=== PATIENT | male | born 1980 | race Two or more races ===

== ENCOUNTER 2018-10-09 11:21 | Inpatient (IN) | payer OTHER ==
[~2018-10-09] VITALS: Ht 165.1 cm; Wt 75.0 kg
[2018-10-09] MEDS ORDERED: SODIUM CHLORIDE 0.9% 1000ML 1,000 ML IV STA (11:33)
[2018-10-09] MEDS ORDERED: VANCOMYCIN 1GM/NS 250 ML 250 ML IV ONE (12:00)
[2018-10-09 12:09] LABS: BASOPHILS # (AUTO) 0.1 (0.0-0.1); BASOPHILS % 0.6 % (0.0-1.0); EOSINOPHILS # (AUTO) 0.1 (0.0-0.4); EOSINOPHILS % 0.5 % (0.0-6.0); HEMATOCRIT 41.8 % (38.2-49.6); HEMOGLOBIN 13.6 g/dL (14.0-18.0); LYMPHOCYTES # (AUTO) 3.1 (1.0-3.2); LYMPHOCYTES % 30.8 % (18.0-39.1); MEAN CORPUSCULAR HEMOGLOBIN 28.8 pg (28-32); MEAN CORPUSCULAR HGB CONC 32.5 g/dL (31-35); MEAN CORPUSCULAR VOLUME 88.4 fL (81-99); MONOCYTES # (AUTO) 1.9 (0.2-0.8); NEUTROPHILS # (AUTO) 4.9 (2.1-6.9); NEUTROPHILS % 48.6 % (38.7-80.0); PLATELET COUNT 598 x10e3/uL (140-360); RED BLOOD COUNT 4.73 x10e6/uL (4.3-5.7)
--- NOTE | 2018-10-09 12:21 | Diagnostic Imaging Report ---
EXAMINATION: PA and lateral views of the chest. COMPARISON: None CLINICAL HISTORY: Shortness of breath, decreased breath sounds on the right DISCUSSION: Near complete opacification of the right hemithorax with leftward mediastinal shift. Left lung is grossly clear. Cardiomediastinal contour is partially obscured No acute osseous abnormality. IMPRESSION: Near complete opacification of the right hemithorax, likely due to large pleural effusion. CT scan of the chest had been requested for further evaluation at the time of this dictation. Signed by: Dr. Byron Haddad M.D. on 10/09/2018 12:18 PM
[2018-10-09 12:23] LABS: INR 1.08; PROTHROMBIN TIME 14.5 seconds (11.9-14.5)
[2018-10-09 12:24] LABS: PARTIAL THROMBOPLASTIN TIME 47.7 seconds (23.8-35.5)
[2018-10-09 12:27] LABS: ALANINE AMINOTRANSFERASE 115 IU/L (0-55); ALBUMIN 2.9 g/dL (3.5-5.0); ALBUMIN/GLOBULIN RATIO 0.5 (0.8-2.0); ALKALINE PHOSPHATASE 111 IU/L (40-150); ANION GAP 15.1 mmol/L (8-16); BLOOD UREA NITROGEN 12 mg/dL (7-26); BUN/CREATININE RATIO 11 (6-25); CALCIUM 9.5 mg/dL (8.4-10.2); CARBON DIOXIDE 24 mmol/L (22-29); CHLORIDE 96 mmol/L (98-107); CREATINE KINASE 278 IU/L (30-200); CREATININE, SERUM 1.05 mg/dL (0.72-1.25); EST GLOMERULAR FILTRATION RATE > 60 ML/MIN (60-); GLUCOSE 100 mg/dL (74-118); MAGNESIUM 2.2 MG/DL (1.3-2.1); POTASSIUM 4.1 mmol/L (3.5-5.1); SODIUM 131 mmol/L (136-145)
[2018-10-09 12:34] LABS: INFLUENZAE A&B ANTIGEN (RAPID) NEGATIVE (NEGATIVE)
[2018-10-09 12:40] LABS: STREPTOCOCCUS GRP A ANTIGEN NEGATIVE (NEGATIVE)
[2018-10-09] MEDS ORDERED: ALBUTEROL SULF 0.083% NEB SOLN 3 ML NEB NEB SCH (12:45)
[2018-10-09] MEDS: LEVOFLOXACIN 750MG/D5W 150ML 150 ML IV SCH (12:45)
[2018-10-09] MEDS ORDERED: SODIUM CHLORIDE 0.9% 1000ML 1,000 ML IV ONE (12:45)
[2018-10-09] MEDS: IPRATROPIUM BROMIDE 0.02% 2.5 ML NEB NEB SCH ×2 (13:00→19:30)
--- NOTE | 2018-10-09 13:16 | NUR ---
contact from [facility], Angie
--- OUTSIDE RECORDS SUMMARY | 2018-10-09 13:29 | XMS REPORT ---
[facility] Address Unknown Phone Unavailable Care Team Providers Care Advertising Account Representative Name Role Phone Sangeetha THOMAS Unavailable Unavailable Problems This patient has no known problems. Allergies, Adverse Reactions, Alerts This patient has no known allergies or adverse reactions. Medications This patient has no known medications. Results Test Description Test Time Test Comments Text Results Atomic Results Result Comments CHEST 2 VIEWS 2018-10-09 12:15:00 [place] [id number] Patient Name: KELSY CASTILLO MR #: [id number] : 1980 Age/Sex: 37/M Req #: [id number] Adm Physician: Ordered by: ISABEL THOMAS MD Report #: [id number] Location: ER Room/Bed: Procedure: [id number] DX/CHEST 2 VIEWS Exam Date: Exam Time: REPORT STATUS: Signed EXAMINATION: PA and lateral views of the chest. COMPARISON: None CLINICAL HISTORY: Shortness of breath, decreased breath sounds on the right DISCUSSION: Near complete opacification of the right hemithorax with leftward mediastinal shift. Left lung is grossly clear. Cardiomediastinal contour is partially obscured No acute osseous abnormality. IMPRESSION: Near complete opacification of the right hemithorax, likely due to large pleural effusion. CT scan of the chest had been requested for further evaluation at the time of this dictation. Signed by: Dr. Eliezer Haddad M.D. on 10/09/2018 12:18 PM Dictated By: ELIEZER HADDAD MD 17 Transcribed By: FARTUN on 10/09/181217 COPY TO: ISABEL THOMAS MD
[2018-10-09 13:33] LABS: LYMPHOCYTES % (MANUAL) 26 % (19-48); METAMYELOCYTES % (MANUAL) 1 % (0-0); MONOCYTES % (MANUAL) 14 % (3.4-9.0); MYELOCYTES % (MANUAL) 1 % (0-0); NEUTROPHILS % (MANUAL) 57 % (40-74); PLATELET ESTIMATE SLIGHTLY INCREASED; PLATELET MORPHOLOGY COMMENT NORMAL; RBC MORPHOLOGY COMMENT NORMAL
[2018-10-09] MEDS ORDERED: SODIUM CHLORIDE 0.9% 50ML 50 ML ONE (14:09)
[2018-10-09] MEDS ORDERED: IOPAMIDOL 370 MG/ML 200 ML INFUS..BTL INJ ONE (14:09)
--- NOTE | 2018-10-09 14:33 | Diagnostic Imaging Report ---
EXAMINATION: CT of the chest with contrast, PE protocol. TECHNIQUE: Spiral CT images of the chest were performed from the lung apices through the level of the adrenal glands after the IV administration of 100 cc of Isovue-370 Thin section reconstructions were obtained with special concentration on the pulmonary arteries. COMPARISON: Chest radiograph same day CLINICAL HISTORY:Chest pain, shortness of breath DISCUSSION: Vasculature: The main pulmonary artery, right and left pulmonary arteries, and their visualized lobar and segmental branches are patent, without filling defect. There is no ectasia or aneurysmal dilatation of the thoracic aorta. Great vessel origins are normal in caliber and configuration. Lungs: Complete passive atelectasis of the right lung with the exception of the apical segment. Leftward mediastinal shift with scattered ground glass opacities in the left lung likely atelectatic changes as well. Airways: Trachea, mainstem bronchi, and central lobar and segmental bronchi are patent to the extent visualized. Many of the right segmental bronchi are compressed by atelectatic lung parenchyma. Pleura: Large right pleural effusion, average attenuation less than 20 Hounsfield units, occupies the entire right hemithorax. No pleural thickening, enhancement, or solid component. Heart and mediastinum: Leftward mediastinal shift. Normal heart size. Thyroid gland is normal. No axillary or hilar lymphadenopathy. No mediastinal lymphadenopathy. Abdomen: Visualized portions of the liver, spleen, and left kidney appear unremarkable. Bones and soft tissues: No osseous destructive lesions. Respiratory motion artifact limits evaluation of the ribs. Vertebral column is intact. IMPRESSION: No pulmonary embolus to the level of the segmental branch pulmonary arteries. Very large right pleural effusion with near complete passive atelectasis of the right lung and leftward mediastinal shift. No pleural thickening, enhancement, or solid pleural lesion. Signed by: Dr. Byron Haddad M.D. on 10/09/2018 2:29 PM
[2018-10-09] MEDS: ALBUTEROL SULF 0.083% NEB SOLN 3 ML NEB NEB SCH ×2 (14:42→19:30)
--- NOTE | 2018-10-09 15:18 | NUR ---
CALL PLACED OUT TO DR. GRAHAM REGARDING ISOLATION PRECAUTION AND ORDERS FOR SCREENING- AWAITING CALLBACK.
--- NOTE | 2018-10-09 15:33 | NUR ---
SPOKE WITH DEPORTATION OFFICER REGARDING ISOLATION - RECEIVED OKAY TO REMOVE PATIENT OFF AIRBORNE ISOLATION PRECAUTION.
--- NOTE | 2018-10-09 15:47 | Diagnostic Imaging Report ---
Examination: Single AP view of the chest. COMPARISON: Earlier 10/09/2018 INDICATION: Post thoracentesis DISCUSSION: See impression IMPRESSION: Interval large volume right thoracentesis with partial reexpansion of the right upper lobe and resolution of leftward mediastinal shift. Significant residual effusion persists. No pneumothorax. Left lung is clear. Signed by: Dr. Byron Haddad M.D. on 10/09/2018 3:44 PM
--- NOTE | 2018-10-09 16:02 | Diagnostic Imaging Report ---
Date and Time: 10/09/2018 Procedure: Ultrasound-guided right thoracentesis explosive operator supervisor: Dr. Haddad Pre-operative diagnosis: Right pleural effusion Post-operative diagnosis: Right pleural effusion Conscious Sedation: None The patient's heart rate and pulse oximetry were continuously monitored by the interventional radiology nurse. Blood pressure was monitored at 5 minute intervals. Additional Medications: Lidocaine 1% for local anesthesia Estimated blood loss: Minimal Blood products administered: None Specimens: 2600 cc cynthia-colored fluid Implants: None Complications: No immediate Condition at completion: Stable Disposition: Remain in hospital room DISCUSSION: Informed consent was obtained and documented in the medical record after discussion of risks and benefits. The patient was placed in the sitting position and the right back was prepped and draped in the standard sterile fashion. A suitable percutaneous approach to the large right pleural effusion was identified and 1% lidocaine was infiltrated into the skin and subcutaneous tissues for local anesthesia. Then under continuous sonographic guidance a 5 Ghanaian Yueh needle catheter was advanced into the pleural space with return of cynthia-colored fluid. The catheter was advanced off the needle and connected to vacuum bottle with subsequent evacuation of 2600 cc cynthia-colored fluid. Given patient's initial presentation and no prior thoracentesis, the procedure was terminated at this time. Post procedure sonographic evaluation showed partial evacuation of the pleural effusion. The catheter was removed and a sterile dressing was applied. The patient tolerated the procedure well without immediate complication. FINDINGS: Large right pleural effusion. IMPRESSION: Successful ultrasound-guided thoracentesis with evacuation of 2600 cc cynthia-colored fluid. Specimen was submitted for laboratory analysis as requested by the referring clinical service. Signed by: Dr. Byron Haddad M.D. on 10/09/2018 3:58 PM
[2018-10-09 16:09] VITALS: BP 133/68
--- NOTE | 2018-10-09 16:09 | NUR ---
PATIENT ARRIVED ON THE UNIT AT 1433 PER STRETCHER FROM THE ER. PATIENT IS IN STABLE CONDITION WITH NO S/S OF RESPIRATORY DISTRESS. PATIENT ARRIVED ON THE UNIT WITH N95 MASK. PER ER NURSE, ER PHYSICIAN STATED PATIENT DID NOT NEED TO BE ON ISOLATION PER CHEST XRAY RESULTS. THORACENTESIS PERFORMED ON PATIENT UPON ARRIVAL TO THE UNIT- RIGHT POSTERIOR DRESSING APPLIED- NO DRAINAGE NOTED. PATIENT STATES NO PAST HISTORY OF TB AND CAN NOT RECALL WHAT VACCINATIONS HE RECEIVED IN THE PAST. CALL LIGHT IS WITHIN REACH, PATIENT INSTRUCTED TO CALL FOR ASSISTANCE NEEDED.
--- NOTE | 2018-10-09 16:41 | Consultation ---
DATE OF CONSULTATION: 10/09/2018 Pulmonary Critical Care Consultation CHIEF COMPLAINT: Fever and pleural effusion. HISTORY OF PRESENT ILLNESS: The patient is a 37-year-old man. He reports no prior medical history. 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 Before this most recent outing, he was examined by the company's medical clinic and had a negative PPD. He now complains of worsening dyspnea and some fevers for the past week. He has a cough that is not productive of phlegm. He does note small amount of chest pain with inspiration. He denies any nausea or vomiting. PAST MEDICAL HISTORY: 1. No history of respiratory problems. 2. No prior history of tuberculosis or pneumonia. 3. The patient had a negative PPD prior to embarking on his most recent ship. PAST SURGICAL HISTORY: None. ALLERGIES: NO KNOWN DRUG ALLERGIES. FAMILY HISTORY: Family history is noncontributory. SOCIAL HISTORY: The patient is not an active smoker nor he is an active drinker. REVIEW OF SYSTEMS: He had some fevers. There is no headache. He does not complain of neck pain. He does note some shortness of breath. He is not having any chest pain. He has no nausea or vomiting. He is not having any leg swelling. He denies any skin rashes. PHYSICAL EXAMINATION: VITAL SIGNS: The patient is afebrile. The vital signs are stable. HEENT: Shows no facial swelling or erythema. The nasal mucosa is normal. The oropharynx is normal. LYMPHATIC: Shows no submandibular, cervical, or supraclavicular adenopathy. CARDIAC: Reveals a regular rate and rhythm with normal S1 and S2. LUNGS: Auscultation of lungs reveals decreased breath sounds on the right side. ABDOMEN: Soft and nontender. There is no rebound or guarding. EXTREMITIES: Show no leg edema or calf tenderness. SKIN: Shows no rashes. RADIOGRAPHIC DATA: Chest x-ray shows a large right pleural effusion. IMPRESSION: 1. Pneumonia with parapneumonic effusion. 2. Fevers. PLAN: 1. The patient will have an ultrasound-guided thoracentesis with analysis for a cell count, LDH, protein, glucose, and cytology. 2. The patient is on antibiotics. 3. Panculture and await results. 4. Monitor blood counts and electrolytes. 5. IV fluids. 6. Oxygen as needed. MD REBEKAH Vinson/PARTH /[id number]
[2018-10-09 16:56] LABS: BODY FLUID APPEARANCE CLOUDY; BODY FLUID COLOR STRAW; BODY FLUID TYPE PLEURAL
[2018-10-09 16:57] LABS: RBC,BODY FLUID 213 cells/uL; WBC,BODY FLUID 149 cells/uL
[2018-10-09] MEDS ORDERED: SODIUM CHLORIDE 0.9% 1000ML 1,000 ML IV SCH (17:45)
[2018-10-09 17:46] LABS: LYMPHOCYTES,BODY FLUID 96 %; MONO/MACROPHG,BODY FLUID 4 %
--- NOTE | 2018-10-09 17:50 | NUR ---
History and Physical cc: sob HPI: 37yoM, a paralegal internship, developed sob. Pt initially awoke at 4am after leaving [place] with headache, that lasted all day. the next day he had fever and dry cough, then sob. no hx TB/lung disease. Pt smokes; PMH: 1/4ppd cigs Pshx; none allergies; see emr FH/Sh; ; occ etoh; 1/4ppd cigs; paralegal internship meds; none roS; no cp/leg pain/vision changes/back pain/skin rash/diarrhea/N/V. V/S: rev'd PE tired appearing anicteric ns1s2 reduced BS; fine crackles at right lung base soft nt nd no e/t a&ox3; armstrong skin dry n. affect labs/med;s rev'd A/P: 37yoM Right pleural effusion R. PNA Obesity BMI 31.5 Hyponatremia Transaminitis Current smoker PLAN s/p thoracentesis 2600ml removed check hepatitis panel check BNP hba1c/lipids/TSH scd/pepcid dispo: Reginald Méndez MD, PhD.
[2018-10-09] MEDS ORDERED: ZOLPIDEM TARTRATE 5 MG TAB PO PRN (18:00)
[2018-10-09] MEDS ORDERED: SENNOSIDES 8.6 MG TAB PO PRN (18:00)
[2018-10-09] MEDS ORDERED: IPRATROPIUM BROMIDE 0.02% 2.5 ML NEB NEB SCH (18:00)
[2018-10-09] MEDS: ACETAMINOPHEN 325 MG TAB PO PRN (18:03)
[2018-10-09 18:12] LABS: CHOL/HDL RATIO 6.9 (3.9-4.7)
--- NOTE | 2018-10-09 18:32 | NUR ---
SPOKE WITH DR. GRAHAM REGARDING PATIENT'S CURRENT TEMPERATURE OF 101.5. RECEIVED ORDERS TO PLACE PATIENT BACK ON AIRBORNE ISOLATION, LAB ORDERS, AND VANCO TROUGH ORDERS.
--- NOTE | 2018-10-09 19:15 | NUR ---
patient received awake, alert, lying quietly in bed. no c/o pain noted. ns at 100 infusing x 1 liter. pm assessment complete. patient instructed to call for assistance when needed.
[2018-10-09 19:30] VITALS: BP 124/75
[2018-10-09 19:54] LABS: HIV 1&2 AB SCREEN NON-REACTIVE (NONREACTIVE)
[2018-10-09 21:07] VITALS: BP 124/75
[2018-10-09 23:19] VITALS: BP 148/85
[2018-10-10] VITALS (7 sets, daily range): BP systolic 121–152; BP diastolic 72–85
[2018-10-10] MEDS ORDERED: VANCOMYCIN 1GM/NS 250 ML 250 ML IV SCH
[2018-10-10] MEDS: IPRATROPIUM BROMIDE 0.02% 2.5 ML NEB NEB SCH ×5 (00:15→23:35)
[2018-10-10] MEDS: ALBUTEROL SULF 0.083% NEB SOLN 3 ML NEB NEB SCH ×7 (00:15→23:35)
[2018-10-10] MEDS: VANCOMYCIN 1GM/NS 250 ML 250 ML IV SCH ×2 (03:48→16:33)
[2018-10-10 06:20] LABS: BASOPHILS % 0.5 % (0.0-1.0); EOSINOPHILS % 0.2 % (0.0-6.0); HEMATOCRIT 35.6 % (38.2-49.6); HEMOGLOBIN 11.9 g/dL (14.0-18.0); LYMPHOCYTES # (AUTO) 2.6 (1.0-3.2); LYMPHOCYTES % 29.7 % (18.0-39.1); MEAN CORPUSCULAR HEMOGLOBIN 28.9 pg (28-32); MEAN CORPUSCULAR HGB CONC 33.4 g/dL (31-35); MEAN CORPUSCULAR VOLUME 86.4 fL (81-99); MONOCYTES # (AUTO) 1.5 (0.2-0.8); MONOCYTES % 17.2 % (4.4-11.3); NEUTROPHILS # (AUTO) 4.5 (2.1-6.9); NEUTROPHILS % 51.9 % (38.7-80.0); PLATELET COUNT 500 x10e3/uL (140-360); RED BLOOD COUNT 4.12 x10e6/uL (4.3-5.7); RED CELL DISTRIBUTION WIDTH 12.1 % (11.7-14.4)
[2018-10-10 06:42] LABS: ALANINE AMINOTRANSFERASE 89 IU/L (0-55); ALBUMIN 2.2 g/dL (3.5-5.0); ALBUMIN/GLOBULIN RATIO 0.5 (0.8-2.0); ALKALINE PHOSPHATASE 94 IU/L (40-150); BLOOD UREA NITROGEN 9 mg/dL (7-26); BUN/CREATININE RATIO 12 (6-25); CALCIUM 8.4 mg/dL (8.4-10.2); CARBON DIOXIDE 23 mmol/L (22-29); CHLORIDE 102 mmol/L (98-107); CREATININE, SERUM 0.77 mg/dL (0.72-1.25); EST GLOMERULAR FILTRATION RATE > 60 ML/MIN (60-); GLUCOSE 96 mg/dL (74-118); SODIUM 132 mmol/L (136-145)
--- NOTE | 2018-10-10 07:30 | NUR ---
PATIENT IS IN STABLE CONDITION WITH NO S/S OF RESPIRATORY DISTRESS. NO PAIN VOICED. TELEMETRY APPLIED WITH CONTINUOUS PULSE OX. O2 APPLIED. SCD'S APPLIED. CALL LIGHT IS WITHIN REACH, PATIENT INSTRUCTED TO CALL FOR ASSISTANCE NEEDED.
[2018-10-10] MEDS: FAMOTIDINE 20 MG TAB PO SCH ×2 (08:05→16:33)
[2018-10-10] MEDS: LEVOFLOXACIN 750MG/D5W 150ML 150 ML IV SCH (08:05)
[2018-10-10] MEDS ORDERED: SODIUM CHLORIDE 0.9% 250ML 250 ML ONE (08:10)
[2018-10-10 09:53] LABS: CLARITY,URINE HAZY (CLEAR); COLOR,URINE YELLOW (YELLOW)
[2018-10-10 09:54] LABS: KETONES,URINE 2+ (NEGATIVE); LEUKOCYTE ESTERASE ,URINE NEGATIVE (NEGATIVE); NITRITE,URINE NEGATIVE (NEGATIVE); PROTEIN,URINE DIPSTICK TRACE (NEGATIVE); URINE UROBILINOGEN 1 mg/dL (0.2 - 1)
[2018-10-10 09:55] LABS: BILIRUBIN,URINE NEGATIVE (NEGATIVE)
[2018-10-10 09:59] LABS: AMORPHOUS SEDIMENT,URINE FEW (FEW); BACTERIA,URINE MODERATE /HPF; EPITHELIAL CELLS,URINE MODERATE /LPF; HYALINE CASTS 0-1 (0-1); RBC,URINE 0-5 /HPF (0-5)
--- NOTE | 2018-10-10 10:29 | NUR ---
IM- progress note O/N; no events roS; no cp/leg pain/vision changes/back pain/skin rash/diarrhea/N/V. V/S: rev'd PE tired appearing anicteric ns1s2 reduced BS; fine crackles at right lung base soft nt nd no e/t a&ox3; armstrong skin dry n. affect labs/med;s rev'd A/P: 37yoM Right pleural effusion R. PNA Obesity BMI 31.5 Hyponatremia Transaminitis Current smoker PLAN s/p thoracentesis 2600ml removed check hepatitis panel check BNP hba1c/lipids/TSH scd/pepcid dispo: 10/10 doing better; get f/u cxr. HIV and flu neg; check MICHELLE and RF; hba1c neg. TSH normal; Reginald Méndez MD, PhD.
--- NOTE | 2018-10-10 10:42 | Diagnostic Imaging Report ---
EXAMINATION: CHEST 2 VIEWS INDICATION: Pneumonia pleural effusion COMPARISON: . FINDINGS: TUBES and LINES: None. LUNGS and PLEURA: Mild interval decrease in large right pleural effusion associated with underlying lung airspace disease which is obscured. The left lung is clear. No pneumothorax. HEART AND MEDIASTINUM: The cardiomediastinal silhouette is unremarkable. BONES AND SOFT TISSUES: No acute osseous lesion. UPPER ABDOMEN: No free air under the diaphragm. IMPRESSION: Mild interval decrease in right pleural effusion status post thoracentesis. Signed by: Dr. Yesica Sosa M.D. on 10/10/2018 10:39 AM
--- NOTE | 2018-10-10 12:34 | NUR ---
THIS PT IS FROM [place] [facility]. FROM [facility], WILL RETURN TO SHIP OR BACK HOME BUT COMPANY WILL MAKE ARRANGEMENTS, WILL HAVE GUARDS FROM COMPANY TO SIT BY BEDSIDE. WORKER WILL CONTACT TO KEEP UP WITH MEDICAL RECORD AND PLAN OF CARE
[2018-10-10] MEDS: ACETAMINOPHEN 325 MG TAB PO PRN (16:33)
--- NOTE | 2018-10-10 17:01 | Progress Note ---
DATE: 10/10/2018 Pulmonary Critical Care progress note SUBJECTIVE: The patient had 2.5 L removed with thoracentesis yesterday. The fluid was consistent with exudate, but did not suggest empyema. The differential showed predominantly lymphocytes. The triglyceride cultures and cytology from the fluid are still pending. PHYSICAL EXAMINATION: VITAL SIGNS: The patient is afebrile, but has a T-max of 99.6. The blood pressure is 146/73 and the respiratory rate is 20. Saturation is 95% on 3 L. HEENT: No facial swelling or erythema. The oropharynx is normal. LYMPHATIC: Shows no submandibular, cervical, or supraclavicular adenopathy. CARDIAC: Reveals a regular rate and rhythm with normal S1, S2. There are no murmurs or rubs. LUNGS: Auscultation of lungs reveals decreased breath sounds on the right side. ABDOMEN: Soft, nontender. There is no rebound or guarding. EXTREMITIES: No leg edema or calf tenderness. There is no cyanosis or clubbing. SKIN: Shows no rashes. NEUROLOGICAL: Shows no focal abnormalities. LABORATORY DATA: White blood cell count is 8.6 and hemoglobin is 11.9. The platelet count is 500. The BUN to creatinine ratio is 9 to 0.77. The other electrolytes are within normal limits. The chest x-ray still shows some right pleural effusion. IMPRESSION: 1. Community-acquired pneumonia with parapneumonic effusion. 2. Large volume right-sided pleural effusion. PLAN: 1. Continue current antibiotics. 2. Await additional results from pleural fluid. 3. Repeat thoracentesis tomorrow. 4. Continue to wean oxygen as tolerated. 5. Case discussed with the patient, nursing and Dr. Méndez. Espinoza Harry MD [facility] /[id number]
--- NOTE | 2018-10-10 18:47 | NUR ---
PATIENT IS IN STABLE CONDITION WITH NO S/S OF RESPIRATORY DISTRESS. NO PAIN VOICED. TELEMETRY AND CONTINUOUS PULSE OX APPLIED. CALL LIGHT IS WITHIN REACH, PATIENT INSTRUCTED TO CALL FOR ASSISTANCE NEEDED. BEDSIDE REPORT GIVEN TO ONCOMING NURSE.
--- NOTE | 2018-10-10 19:00 | NUR ---
patient received awake, alert, lying quietly in bed. no c/o pain noted. 3l/nc in use. respirations even and unlabored. pm assessment complete. patient instructed to call for assistance when needed.
[2018-10-11] VITALS (7 sets, daily range): BP systolic 119–148; BP diastolic 70–98
[2018-10-11] MEDS: ACETAMINOPHEN 325 MG TAB PO PRN (00:27)
--- NOTE | 2018-10-11 00:27 | NUR ---
patient medicated with tylenol 650 mg po for temp 101.8 at this time.
[2018-10-11] MEDS: ALBUTEROL SULF 0.083% NEB SOLN 3 ML NEB NEB SCH ×6 (00:50→20:35)
[2018-10-11] MEDS: VANCOMYCIN 1GM/NS 250 ML 250 ML IV SCH ×2 (03:33→15:44)
[2018-10-11] MEDS: IPRATROPIUM BROMIDE 0.02% 2.5 ML NEB NEB SCH ×3 (08:15→20:35)
[2018-10-11] MEDS: FAMOTIDINE 20 MG TAB PO SCH ×2 (08:28→15:44)
[2018-10-11] MEDS: LEVOFLOXACIN 750MG/D5W 150ML 150 ML IV SCH (08:28)
--- NOTE | 2018-10-11 11:52 | Diagnostic Imaging Report ---
A single frontal view of the chest. HISTORY: Pleural Effusion and Pneumonia COMPARISON: Chest radiograph October 10, 2018 DISCUSSION: Portable technique, limits sensitivity of the exam. Overlying monitoring leads. Tubes/Lines: None Lungs and pleura: The large right pleural effusion with adjacent prominent right lung atelectasis, appears slightly increased versus the comparison. The left lung remains clear. Heart and mediastinum: The right side of the heart is obscured. Bones and soft tissues: Appears unchanged. IMPRESSION: Large right pleural effusion with adjacent atelectasis, slightly increased. Signed by: Dr. Artis Munoz D.O., M.M.M. on 10/11/2018 11:48 AM
--- NOTE | 2018-10-11 16:15 | Operative Report ---
DATE OF PROCEDURE: October 12, 2018 SURGEON: Espinoza Harry MD PREOPERATIVE DIAGNOSIS: Pneumonia with parapneumonic effusion. POSTOPERATIVE DIAGNOSIS: Pneumonia with parapneumonic effusion. CONSENT: Consent was obtained from the patient. ANESTHESIA: 1% lidocaine was used for local anesthesia. PROCEDURE: Thoracentesis with ultrasound guidance. Ultrasound was used to locate the pleural fluid in the right pleural space. The right posterior thorax was prepped sterilely. One percent lidocaine was used to anesthetize the area above the posterior, ninth rib, the subcutaneous tissue and the parietal pleura. A 16-gauge catheter was placed in the right pleural space and the catheter was advanced into the pleural space. 200 mL of thick yellow fluid was removed. COMPLICATIONS: None. ESTIMATED BLOOD LOSS: None. Espinoza Harry MD [facility] /[id number]
--- NOTE | 2018-10-11 16:22 | NUR ---
IM- progress note O/N; no events roS; no cp/leg pain/vision changes/back pain/skin rash/diarrhea/N/V. V/S: rev'd PE tired appearing anicteric ns1s2 reduced BS; fine crackles at right lung base soft nt nd no e/t a&ox3; armstrong skin dry n. affect labs/med;s rev'd A/P: 37yoM Right pleural effusion R. PNA Obesity BMI 31.5 Hyponatremia Transaminitis Current smoker PLAN s/p thoracentesis 2600ml removed check hepatitis panel check BNP hba1c/lipids/TSH scd/pepcid dispo: 10/10 doing better; get f/u cxr. HIV and flu neg; check MICHELLE and RF; hba1c neg. TSH normal; 10/11 d/w - appears to be loculated right pleural effusion- reaccumulated. Agree with CV surgery consult. 200cc fluid removed by 2nd thoracentesis; Pt comfortable; no resp distress. Reginald Méndez MD, PhD.
[2018-10-11 17:32] LABS: BODY FLUID TYPE PLEURAL
[2018-10-11 17:36] LABS: BODY FLUID COLOR YELLOW
[2018-10-11 17:37] LABS: BODY FLUID APPEARANCE SL.CLOUDY
[2018-10-11 17:39] LABS: RBC,BODY FLUID 1631 cells/uL; WBC,BODY FLUID 67 cells/uL
[2018-10-11 18:23] LABS: LYMPHOCYTES,BODY FLUID 87 %; MONO/MACROPHG,BODY FLUID 3 %; NEUTROPHILS,BODY FLUID 10 %
[2018-10-12] VITALS (8 sets, daily range): BP systolic 106–135; BP diastolic 55–75
[2018-10-12] MEDS: IPRATROPIUM BROMIDE 0.02% 2.5 ML NEB NEB SCH ×4 (00:50→20:00)
[2018-10-12 04:06] LABS: BASOPHILS # (AUTO) 0.1 (0.0-0.1); BASOPHILS % 0.7 % (0.0-1.0); EOSINOPHILS # (AUTO) 0.1 (0.0-0.4); EOSINOPHILS % 1.5 % (0.0-6.0); HEMATOCRIT 35.7 % (38.2-49.6); HEMOGLOBIN 11.8 g/dL (14.0-18.0); LYMPHOCYTES # (AUTO) 2.3 (1.0-3.2); LYMPHOCYTES % 26.3 % (18.0-39.1); MEAN CORPUSCULAR HEMOGLOBIN 29.2 pg (28-32); MEAN CORPUSCULAR HGB CONC 33.1 g/dL (31-35); MEAN CORPUSCULAR VOLUME 88.4 fL (81-99); MONOCYTES # (AUTO) 1.5 (0.2-0.8); MONOCYTES % 17.3 % (4.4-11.3); NEUTROPHILS # (AUTO) 4.7 (2.1-6.9); NEUTROPHILS % 53.7 % (38.7-80.0); PLATELET COUNT 564 x10e3/uL (140-360); RED BLOOD COUNT 4.04 x10e6/uL (4.3-5.7); RED CELL DISTRIBUTION WIDTH 12.3 % (11.7-14.4)
[2018-10-12] MEDS: ALBUTEROL SULF 0.083% NEB SOLN 3 ML NEB NEB SCH ×4 (04:45→20:00)
--- NOTE | 2018-10-12 04:55 | NUR ---
VANCO TROUGH DRAWN AT 0300. BROUGHT TO LAB AT 0305. TIME NOW IS 0455, VANCO THROUGH RESULT IS STILL PENDING. CALLED LAB 6X BUT PHOTOVOLTAIC SUBCONTRACTOR KEEP SAYING " WE'RE BEHIND"
--- NOTE | 2018-10-12 05:32 | NUR ---
VANCO TROUGH RESULTED AT THIS TIME.
[2018-10-12] MEDS: VANCOMYCIN 1GM/NS 250 ML 250 ML IV SCH ×2 (05:34→16:31)
--- NOTE | 2018-10-12 07:40 | NUR ---
IM- progress note O/N; no events roS; no cp/leg pain/vision changes/back pain/skin rash/diarrhea/N/V. V/S: rev'd PE tired appearing anicteric ns1s2 reduced BS; fine crackles at right lung base soft nt nd no e/t a&ox3; armstrong skin dry n. affect labs/med;s rev'd A/P: 37yoM Right pleural effusion R. PNA Obesity BMI 31.5 Hyponatremia Transaminitis Current smoker PLAN s/p thoracentesis 2600ml removed check hepatitis panel check BNP hba1c/lipids/TSH scd/pepcid dispo: 10/10 doing better; get f/u cxr. HIV and flu neg; check MICHELLE and RF; hba1c neg. TSH normal; 10/11 d/w - appears to be loculated right pleural effusion- reaccumulated. Agree with CV surgery consult. 200cc fluid removed by 2nd thoracentesis; Pt comfortable; no resp distress. 10/12 f/u labs; chest tube this am. Reginald Méndez MD, PhD.
[2018-10-12 08:00] LABS: ALANINE AMINOTRANSFERASE 184 IU/L (0-55); ALBUMIN 2.3 g/dL (3.5-5.0); ALBUMIN/GLOBULIN RATIO 0.5 (0.8-2.0); ANION GAP 12.5 mmol/L (8-16); BLOOD UREA NITROGEN 8 mg/dL (7-26); BUN/CREATININE RATIO 10 (6-25); CARBON DIOXIDE 23 mmol/L (22-29); CHLORIDE 104 mmol/L (98-107); CREATININE, SERUM 0.81 mg/dL (0.72-1.25); EST GLOMERULAR FILTRATION RATE > 60 ML/MIN (60-); GLUCOSE 107 mg/dL (74-118); POTASSIUM 4.5 mmol/L (3.5-5.1); SODIUM 135 mmol/L (136-145)
[2018-10-12 08:16] LABS: ALKALINE PHOSPHATASE 102 IU/L (40-150)
[2018-10-12] MEDS: LEVOFLOXACIN 750MG/D5W 150ML 150 ML IV SCH (09:15)
--- NOTE | 2018-10-12 09:25 | NUR ---
Pt left to IR for Chest tube placement
[2018-10-12] MEDS ORDERED: FENTANYL CITRATE/PF 100MCG/2 ML INJ ONE (09:35)
[2018-10-12] MEDS ORDERED: MIDAZOLAM HCL 2 MG/2 ML VIAL ONE (09:35)
--- NOTE | 2018-10-12 09:45 | NUR ---
Pt received resting in bed. Alert and oriented x4. Oriented to staff and surroundings. Encouraged to press call heredia if help needed. Pt is on R/O TB precautions. Emotional support given. Call heredia within reach. Will monitor
--- NOTE | 2018-10-12 10:10 | Progress Note ---
DATE: 10/12/2018 Pulmonary Critical Care Progress Note SUBJECTIVE: The patient states he feels better this morning. He has less dyspnea, although chest x-ray still shows some right-sided effusion and/or atelectasis. PHYSICAL EXAMINATION: VITAL SIGNS: The blood pressure is 106/55 and the saturation is 99% on 3 L. The pulse is 93 and respiratory rate is 18. HEENT: Shows no facial swelling or erythema. The oropharynx is normal. LYMPHATIC: Shows no submandibular, cervical, or supraclavicular adenopathy. CARDIAC: Reveals a regular rate and rhythm with normal S1, S2. There are no murmurs or rubs. LUNGS: Auscultation of lungs reveals decreased breath sounds on the right side. EXTREMITIES: There is no leg edema or calf tenderness. SKIN: Shows no rashes. IMPRESSION: 1. Community-acquired pneumonia with sepsis on admission. 2. Complicated right-sided parapneumonic effusion. PLAN: 1. The patient is scheduled for a pigtail chest tube placement by Radiology today. 2. Continue current antibiotics. 3. Await final culture results. 4. CT Surgery consultation. Espinoza Harry MD [facility] /[id number]
[2018-10-12] MEDS ORDERED: LIDOCAINE HCL 1% LOCAL INJ 20 ML VIAL ONE (10:25)
--- NOTE | 2018-10-12 11:00 | NUR ---
Pt returned from IR with Right sided Chest tube. 500ml yellow fluid noted in chest tube. Emotional support given. Call heredia within reach. Will monitor
--- NOTE | 2018-10-12 12:05 | Diagnostic Imaging Report ---
CT Guided Right Chest Tube Placement COMPARISON: Chest radiograph 10/11/2018. CONSENT: The nature of the procedure, including its risks, benefits and alternatives was explained to the patient who understood and gave consent. TRAVELING REPAIR ACCOUNTANT: Kellie Clifton MD ANESTHESIA: Intravenous conscious sedation was administered by radiology nursing. Continuous hemodynamic and respiratory monitoring was performed, including the use of pulse oximetry. TOTAL SEDATION TIME: 55 minutes. MEDICATIONS: 10 cc of 1% subcutaneous lidocaine 75 mcg IV Fentanyl and 1.5 mg IV Versed per nursing administration records SPECIMENS: 30 cc of serous clear yellow fluid, total of 350 cc of fluid removed IMPLANTS: 10 Fr pigtail right basilar chest tube BLOOD LOSS: None TECHNIQUE/FINDINGS: The patient was placed in the supine position. Scans were obtained through the right lung which demonstrated a large layering right sided pleural effusion with associated atelectasis. A clear path to the basilar aspect of the right effusion via right anterolateral approach was identified. The skin of the right anterior and lateral chest was marked, prepped, draped and anesthetized with 1% lidocaine. With CT guidance, an 18 gauge needle was inserted percutaneously into the right pleural space. Subsequently, an .35'' Amplatz wire was placed. Then with CT guidance, a 10 English pigtail catheter was placed into the right basilar pleural space. The catheter was connected to wall suction and the the pleural effusion was partially aspirated. Repeat CT demonstrated decreased moderate to large right pleural effusion with improved aeration within the right lung. The catheter was secured with two sutures and a sterile dressing was placed. No evidence of immediate complication. The patient was transported to the floor in stable condition. IMPRESSION: CT guided right sided chest tube placement for large right pleural effusion. Post procedural CT demonstrating improvement of moderate to large right pleural effusion. Signed by: Dr. Kellie Clifton MD on 10/12/2018 12:02 PM
[2018-10-12] MEDS: FAMOTIDINE 20 MG TAB PO SCH ×2 (12:09→16:31)
[2018-10-12] MEDS: ACETAMINOPHEN 325 MG TAB PO PRN (12:09)
[2018-10-12 14:36] LABS: EOSINOPHILS % (MANUAL) 2 % (0-7); LYMPHOCYTES % (MANUAL) 33 % (19-48); MONOCYTES % (MANUAL) 16 % (3.4-9.0); NEUTROPHILS % (MANUAL) 49 % (40-74); PLATELET ESTIMATE SLIGHTLY INCREASED; PLATELET MORPHOLOGY COMMENT NORMAL
[2018-10-12 14:37] LABS: ANISOCYTOSIS SLIGHT; HYPOCHROMASIA SLIGHT; RBC MORPHOLOGY COMMENT NORMAL
--- NOTE | 2018-10-12 19:10 | NUR ---
patient received awake, alert, lying quietly in bed. no c/o pain noted. chest tube (right) to 20 cm suction. pm assessment complete. patient instructed to call for assistance when needed.
--- NOTE | 2018-10-12 19:23 | NUR ---
100 ML fluid noted since 11AM. Emotional sup[port given. Call heredia within reach. Will monitor
[2018-10-13] VITALS (8 sets, daily range): BP systolic 107–129; BP diastolic 59–90
[2018-10-13] MEDS: IPRATROPIUM BROMIDE 0.02% 2.5 ML NEB NEB SCH ×5 (00:30→23:45)
[2018-10-13] MEDS: ALBUTEROL SULF 0.083% NEB SOLN 3 ML NEB NEB SCH ×7 (00:30→23:45)
[2018-10-13] MEDS: VANCOMYCIN 1GM/NS 250 ML 250 ML IV SCH ×2 (03:12→17:30)
--- NOTE | 2018-10-13 05:15 | NUR ---
patient appears to be resting quietly. no c/o pain verbalized. chest tube output remains unchanged throughout the night.
[2018-10-13 06:27] LABS: BASOPHILS # (AUTO) 0.1 (0.0-0.1); BASOPHILS % 0.7 % (0.0-1.0); EOSINOPHILS # (AUTO) 0.2 (0.0-0.4); EOSINOPHILS % 2.9 % (0.0-6.0); HEMATOCRIT 36.8 % (38.2-49.6); HEMOGLOBIN 12.1 g/dL (14.0-18.0); LYMPHOCYTES # (AUTO) 2.4 (1.0-3.2); LYMPHOCYTES % 28.5 % (18.0-39.1); MEAN CORPUSCULAR HEMOGLOBIN 28.7 pg (28-32); MEAN CORPUSCULAR HGB CONC 32.9 g/dL (31-35); MEAN CORPUSCULAR VOLUME 87.4 fL (81-99); MONOCYTES # (AUTO) 1.2 (0.2-0.8); MONOCYTES % 14.3 % (4.4-11.3); NEUTROPHILS # (AUTO) 4.4 (2.1-6.9); NEUTROPHILS % 53.1 % (38.7-80.0); PLATELET COUNT 578 x10e3/uL (140-360); RED BLOOD COUNT 4.21 x10e6/uL (4.3-5.7); RED CELL DISTRIBUTION WIDTH 12.3 % (11.7-14.4)
[2018-10-13 07:08] LABS: ALANINE AMINOTRANSFERASE 292 IU/L (0-55); ALBUMIN 2.3 g/dL (3.5-5.0); ALBUMIN/GLOBULIN RATIO 0.4 (0.8-2.0); ALKALINE PHOSPHATASE 140 IU/L (40-150); ANION GAP 11.4 mmol/L (8-16); BLOOD UREA NITROGEN 10 mg/dL (7-26); BUN/CREATININE RATIO 12 (6-25); CALCIUM 9.2 mg/dL (8.4-10.2); CARBON DIOXIDE 23 mmol/L (22-29); CHLORIDE 102 mmol/L (98-107); CREATININE, SERUM 0.83 mg/dL (0.72-1.25); EST GLOMERULAR FILTRATION RATE > 60 ML/MIN (60-); GLUCOSE 102 mg/dL (74-118); POTASSIUM 4.4 mmol/L (3.5-5.1); SODIUM 132 mmol/L (136-145)
--- NOTE | 2018-10-13 07:09 | NUR ---
Total of 740ML received in chest tube this am. Will monitor
--- NOTE | 2018-10-13 09:20 | NUR ---
Pt received resting in bed. Chest tube fluid is yellow in color at 740ML celine. All meds given as ordered. Airborne isolation to r/o TB. Emotional support given. Will monitor
[2018-10-13] MEDS: FAMOTIDINE 20 MG TAB PO SCH ×2 (09:31→16:30)
[2018-10-13] MEDS: LEVOFLOXACIN 750MG/D5W 150ML 150 ML IV SCH (09:31)
--- NOTE | 2018-10-13 14:16 | Diagnostic Imaging Report ---
AP and lateral chest radiographs HISTORY: Right pleural effusion. COMPARISON: Chest radiograph 10/11/[address] guided chest tube placement 10/12/2018. DISCUSSION: Tubes/Lines: None Lungs and pleura: Status post interval placement of a right basilar pigtail chest tube. Interval decrease in size of right-sided pleural effusion, now moderate. There is increased aeration within the right lung. No evidence of pneumothorax. The left lung remains clear. Heart and mediastinum: Unchanged cardiomediastinal silhouette. Bones and soft tissues: No acute osseous abnormality. IMPRESSION: Interval placement of a right basilar chest tube with decreased right pleural effusion, now moderate. Improved aeration within the right lung. Signed by: Dr. Kellie Clifton MD on 10/13/2018 2:12 PM
--- NOTE | 2018-10-13 15:07 | NUR ---
IM- progress note O/N; no events roS; no cp/leg pain/vision changes/back pain/skin rash/diarrhea/N/V. V/S: rev'd PE tired appearing anicteric ns1s2 reduced BS; fine crackles at right lung base soft nt nd no e/t a&ox3; armstrong skin dry n. affect labs/med;s rev'd A/P: 37yoM Right pleural effusion R. PNA Obesity BMI 31.5 Hyponatremia Transaminitis Current smoker PLAN s/p thoracentesis 2600ml removed check hepatitis panel check BNP hba1c/lipids/TSH scd/pepcid dispo: 10/10 doing better; get f/u cxr. HIV and flu neg; check MICHELLE and RF; hba1c neg. TSH normal; 10/11 d/w - appears to be loculated right pleural effusion- reaccumulated. Agree with CV surgery consult. 200cc fluid removed by 2nd thoracentesis; Pt comfortable; no resp distress. 10/12 f/u labs; chest tube this am. 10/13 s/p chest tube; f/u sx plan. RF negative; MICHELLE neg; check acute hepatitis panel. Reginald Méndez MD, PhD.
--- NOTE | 2018-10-13 18:04 | Diagnostic Imaging Report ---
EXAMINATION: CT scan of the chest without contrast. TECHNIQUE: Helical CT images of the chest were performed from the lung apices to the level of the adrenal glands. No intravenous contrast was administered Coronal and sagittal reformatted images were obtained.Dose modulation, iterative reconstruction, and/or weight based adjustment of the mA/kV was utilized to reduce the radiation dose to as low as reasonably achievable. COMPARISON: None. CLINICAL HISTORY:Effusion and pneumonia DISCUSSION: ABSENCE OF INTRAVENOUS CONTRAST DECREASES SENSITIVITY FOR DETECTION OF FOCAL LESIONS AND VASCULAR PATHOLOGY. LINES/TUBES: Left pigtail catheter within the inferior portion of the effusion. LUNGS AND AIRWAYS: Atelectasis involving the right upper lobe medially and adjacent to the moderate size right effusion. Mild left lower lung atelectasis. Mild ground glass change in the left upper lobe peripherally. PLEURA: Moderate right pleural effusion. HEART AND MEDIASTINUM: The thyroid gland is normal. The heart and pericardium are within normal limits. LYMPH NODES: There is no mediastinal, hilar or axillary lymphadenopathy. ABDOMEN: Limited contrast-enhanced views of the upper abdomen show no abnormality within the visualized liver, spleen, pancreas, or kidneys. The adrenal glands are normal. BONES AND SOFT TISSUES: No acute bony abnormalities. IMPRESSION: Moderate right pleural effusion with adjacent atelectasis. Pigtail catheter in place in the inferior portion of the effusion. Signed by: Dr. Enzo Tucker M.D. on 10/13/2018 6:00 PM
--- NOTE | 2018-10-13 18:04 | Progress Note ---
DATE: 10/13/2018 Pulmonary Critical Care Progress Note SUBJECTIVE: The patient had the chest tube placed yesterday. He has had about a 1000 mL of drainage over the past 24 hours. He reports feeling better. He still has a fever to 99.6. OBJECTIVE: VITAL SIGNS: The patient is afebrile. The blood pressure is 122/70 and the pulse is 95. Temperature is 99.4. HEENT: Shows no facial swelling or erythema. The oropharynx is normal. LYMPHATIC: Shows no submandibular, cervical, or supraclavicular adenopathy. CARDIAC: Reveals a regular rate and rhythm with normal S1 and S2. There are no murmurs or rubs. LUNGS: Auscultation of lungs reveals rhonchorous breath sounds bilaterally. There is no wheezing. ABDOMEN: Soft, nontender. There is no rebound or guarding. EXTREMITIES: Show no leg edema or calf tenderness. IMPRESSION: 1. Community-acquired pneumonia. 2. Parapneumonic effusion. PLAN: 1. Repeat CT scan of the chest. 2. Continue current antibiotics. 3. Await final culture results. 4. Continue chest tube drainage. Espinoza Harry MD [facility]/PARTH /[id number]
--- NOTE | 2018-10-13 19:00 | NUR ---
patient received awake, alert, lying quietly in bed talking on cell phone. respirations even and unlabored. no c/o pain noted. right chest tube dressing site c,d,i. pm assessment complete. patients call heredia placed within reach. patient instructed to call for assistance when needed.
--- NOTE | 2018-10-13 19:33 | NUR ---
Total of 340ML noted in chest tube during this shift (1080ML in chest tube). Emotional support given. Call heredia within reach. Endorsed to next shift
--- NOTE | 2018-10-13 19:52 | NUR ---
As per I.D nurse, pt should be taken off isolation due to negative stest. T-Spot (a send-out) sent yesterday morning (10/12/18) will take 32-36 hours to result. Called Dr. Méndez notified, and Dr. Valerio consulted. Spoke to Dr. Harry also. Neither doctors gave order to discontinue Airborne isolation. Charge nurse & boiler shop supervisor aware. Endorsed to oncoming shift
[2018-10-14] VITALS (8 sets, daily range): BP systolic 107–128; BP diastolic 61–79
--- NOTE | 2018-10-14 | NUR ---
patient appears to be resting quietly. no c/o pain noted at this time.
[2018-10-14] MEDS: ALBUTEROL SULF 0.083% NEB SOLN 3 ML NEB NEB SCH ×6 (00:22→20:00)
[2018-10-14] MEDS: VANCOMYCIN 1GM/NS 250 ML 250 ML IV SCH (03:21)
[2018-10-14] MEDS ORDERED: SODIUM CHLORIDE 0.9% 250ML 250 ML ONE (04:29)
[2018-10-14] MEDS: IPRATROPIUM BROMIDE 0.02% 2.5 ML NEB NEB SCH ×3 (07:00→20:00)
--- NOTE | 2018-10-14 07:36 | NUR ---
PATIENT IN BED RESTING WITH NO RESPIRATORY DISTRESS. RIGHT CHEST TUBE WITH DRESSING DRY AND INTACT, DRAINING YELLOW FLUID. BED IN LOWER POSITION, CALL LIGHT AT REACH.
[2018-10-14] MEDS: FAMOTIDINE 20 MG TAB PO SCH ×2 (07:50→16:47)
--- NOTE | 2018-10-14 08:03 | NUR ---
IM- progress note O/N; no events roS; no cp/leg pain/vision changes/back pain/skin rash/diarrhea/N/V. V/S: rev'd PE tired appearing anicteric ns1s2 reduced BS; fine crackles at right lung base soft nt nd no e/t a&ox3; armstrong skin dry n. affect labs/med;s rev'd A/P: 37yoM Right pleural effusion R. PNA Obesity BMI 31.5 Hyponatremia Transaminitis Current smoker PLAN s/p thoracentesis 2600ml removed check hepatitis panel check BNP hba1c/lipids/TSH scd/pepcid dispo: 10/10 doing better; get f/u cxr. HIV and flu neg; check MICHELLE and RF; hba1c neg. TSH normal; 10/11 d/w - appears to be loculated right pleural effusion- reaccumulated. Agree with CV surgery consult. 200cc fluid removed by 2nd thoracentesis; Pt comfortable; no resp distress. 10/12 f/u labs; chest tube this am. 10/13 s/p chest tube; f/u sx plan. RF negative; MICHELLE neg; check acute hepatitis panel. 10/14 subtherapeutic vanco; ID consult. Pt was seen by CV surgery. awaiting plan of care. Reginald Méndez MD, PhD.
[2018-10-14] MEDS: LEVOFLOXACIN 750MG/D5W 150ML 150 ML IV SCH (09:27)
--- NOTE | 2018-10-14 13:05 | NUR ---
PATIENT ASSISTED TO BED SIDE COMMODE AND BACK TO BED. HAD A LARGE BM. CHEST TUBE IN PLACE. CALL LIGHT AT REACH.
--- NOTE | 2018-10-14 16:09 | NUR ---
PATIENT OFF UNIT TO RADIOLOGY.
--- NOTE | 2018-10-14 16:37 | NUR ---
PATIENT BACK TO UNIT FROM RADIOLOGY.
--- NOTE | 2018-10-14 17:09 | Diagnostic Imaging Report ---
EXAMINATION: CT of the chest, abdomen and pelvis with contrast. TECHNIQUE: Spiral CT images of the chest, abdomen and pelvis were performed from the lung apices to the lesser trochanters after the intravenous administration of 100 cc of Isovue-370. Coronal and sagittal reformatted images were obtained. COMPARISON: CT chest without contrast 10/13/2018 CLINICAL HISTORY:Suspected malignancy DISCUSSION: CHEST: LINES/TUBES: Stable position of right-sided locking loop pleural drainage catheter. LUNGS AND AIRWAYS: Stable scar or atelectatic changes in the medial aspect of the right lung apex as well as complete passive atelectasis of the right lower lobe. Groundglass opacities in the left upper lobe unchanged, along with linear atelectasis in the left lung base. PLEURA: Moderate residual right pleural effusion with probable reactive thin pleural enhancement. Effusion is similar in size to that noted 10/13/2018. HEART AND MEDIASTINUM: Visualized portions of the thyroid gland are normal. No ectasia or aneurysmal dilatation of the thoracic aorta. Pulmonary outflow tract is of normal caliber. No pericardial effusion. Right lower paratracheal node measures 1 cm short axis. Otherwise no axillary, hilar, or mediastinal lymphadenopathy. LYMPH NODES: As above. BONES AND SOFT TISSUES: No osseous destructive lesions. No focal soft tissue abnormalities. ABDOMEN/PELVIS: HEPATOBILIARY:No focal hepatic lesions. No biliary ductal dilation. The gallbladder is normal. SPLEEN: No splenomegaly. PANCREAS: No focal masses or ductal dilatation. ADRENALS: No adrenal nodules. KIDNEYS/URETERS: Punctate nonobstructing calculus in the right kidney seen on series 304 image 57. No additional calculi. No mass lesion. No hydronephrosis. PELVIC ORGANS/BLADDER: Urinary bladder is incompletely distended but otherwise unremarkable. Prostate and seminal vesicles appear normal. PERITONEUM/RETROPERITONEUM: No free air or fluid. LYMPH NODES: No pelvic sidewall, retroperitoneal, or mesenteric lymphadenopathy. VESSELS: Abdominal aorta, major branch vessels, and iliac arterial systems are patent without aneurysmal dilatation. Portal vein, splenic vein, and central superior mesenteric vein are patent. GI TRACT: The large bowel shows no distention or wall thickening. Gas and fecal material are noted throughout. Normal appendix. The stomach is collapsed with prominent rugal folds. No small bowel dilatation to suggest obstruction; however, there are several foci of relatively abrupt transition from collapsed to distended small bowel for example on series 305 image 27 and series 304 image 103. BONES AND SOFT TISSUES: No osseous destructive lesions. No focal soft tissue abnormalities. IMPRESSION: Stable appearance of moderate right pleural effusion relative to 10/13/2018, with a pleural drainage catheter in the posterior-inferior aspect of the effusion and presumed reactive pleural enhancement. No underlying pulmonary mass lesion is appreciated, though evaluation is limited by persistent complete passive atelectasis of the right lobe. Nonspecific groundglass opacities in the left lung are likely infectious or inflammatory in nature. No acute intra-abdominal or pelvic CT abnormalities. Multiple abrupt transition points from collapsed to distended small bowel without evidence of small bowel obstruction. This appearance may be seen in mycobacterial infection of the bowel, especially in light of associated thoracic findings. Fluoroscopic small bowel series or MR enterography of the abdomen and pelvis may be of benefit for further evaluation. Punctate nonobstructing right renal calculus. Signed by: Dr. Byron Haddad M.D. on 10/14/2018 5:06 PM
[2018-10-14] MEDS ORDERED: SODIUM CHLORIDE 0.9% 50ML 50 ML ONE (17:33)
[2018-10-14] MEDS ORDERED: IOPAMIDOL 370 MG/ML 200 ML INFUS..BTL INJ ONE (17:33)
--- NOTE | 2018-10-14 17:41 | Consultation ---
DATE OF CONSULTATION: 10/14/2018 REASON FOR CONSULTATION: Evaluate and assist in treatment of patient with pneumonia and pleural effusion. Information is gathered from current medical record. I interviewed the patient at bedside. HISTORY OF PRESENT ILLNESS: He is a 37-year-old male, who is a citizen of [facility]. He works on a ship. He reports that he has never been hospitalized, he has never been diagnosed with tuberculosis or cancer, he has no significant past medical history. He had been well when he boarded ship. According to him, suddenly after passing through the [place], he developed fevers. Notes on the chart indicate he developed associated cough, productive of yellowish sputum. The patient reports that by the time they arrived in [place], he was ill and hence he was brought to this hospital for evaluation. He was admitted here on October 09, 2018. At presentation, his temperature was 98.9 degrees Fahrenheit. Later on the same day, he had temperature up to 101.5 degrees Fahrenheit. Since then, he has continued to have intermittent fevers during his hospitalization. His pulse rate was 96, was 88 at presentation, later increasing up to 105. His respiratory rate was 16, increasing up to 20. His blood pressure was 122/80. He had a CBC done that showed white count of 10,000 with 19% monocytes, 48% neutrophils, 30% lymphocytes on an automated differential. On the manual differential; 57% neutrophils, 26% lymphocytes, and 14% monocytes. His on October 10 showed creatinine of 0.7. His liver function tests showed an AST of 63 and ALT of 89. His liver function tests have since progressively increased to an AST of 174 on October 13 and ALT of 292, alkaline phosphatase and total bilirubin have been normal. He had sputum culture from October 09 that showed normal respiratory kacy. Gram stain showed gram positive cocci in pairs and gram positive rods. Blood cultures collected on October 09 were negative. Throat culture from October 09 showed normal respiratory kacy. His chest x-ray from October 09 reported near complete opacification of the right hemithorax thought to be due to last pleural effusion. The patient had thoracentesis on October 09. Pleural fluid showed a straw colored cloudy fluid with 149 wbcs, 96% of which were lymphocytes. Fluid glucose was 85, protein 6, LDH 450. A thoracentesis was repeated on October 11 that showed 67 WBCs, 87% of which were lymphocytes. RBCs in the pleural fluid on October 09 were 213 and on October 11, it had increased to 1631. Pleural fluid culture from October 09, gram stain showed many WBCs with no organisms. Culture is negative. On October 11, pleural fluid gram stain showed few WBCs, no organism. The culture is negative. Pathology on the pleural fluid is reported negative for malignancy. The patient has been receiving treatment with levofloxacin and vancomycin. His medical history is as reported above. Again, there is no history of chronic lung disease, tuberculosis, malignancy, or HIV infection. There is no history of diabetes, hypertension, cardiac, renal, or liver disease. SOCIAL HISTORY: He smokes. He drinks socially. He denies other forms of recreational drug use. He works on a ship. FAMILY HISTORY: Noncontributory to this current hospitalization. ALLERGIES: HE HAS NO KNOWN ALLERGIES. MEDICATIONS: He has been on vancomycin and Levaquin. The rest of his medications are per medication administration report. REVIEW OF SYSTEMS: The patient is alert. His sensorium is clear. He has no headache or neck stiffness. No sore throat. No visual or auditory complaints. No chest or abdominal pain currently. No nausea or vomiting. No frequency or dysuria. No hematuria. No pruritus or rash. The patient reports that he has lost some weight that he cannot quantify. PHYSICAL EXAMINATION: GENERAL: He is an adult male. He is alert, responsive, coherent. He appears ill, but nontoxic. He is in no acute distress. VITAL SIGNS: In the past 24 hours, his maximum temperature up to 103 degrees Fahrenheit, most recent temperature 99.3. He is hemodynamically stable. He has no gross pallor. No obvious icterus. No oropharyngeal lesions. NECK: Supple. CHEST: Symmetric. Breath sounds are decreased in right lung base, otherwise clear in upper lungs. HEART: Sounds are regular without a significant murmur. ABDOMEN: Full, soft, nontender with normal bowel sounds. EXTREMITIES: There is no acute erythema of his extremities. SKIN: There is no obvious skin rash or ulcer. No palpable adenopathy. LABORATORY DATA: His white count 10.0 on October 09, 8.2 currently. Hemoglobin 12.1, platelet count 578. Differential on white count significant for monocytosis of 14%, monocytosis was 19% at presentation. His creatinine is 0.8. Liver function tests abnormal currently with AST 174, ALT 292, bilirubin and alkaline phosphatase are normal. Cultures are as reported previously. MICHELLE test was on October 10. Rheumatoid factor normal. HIV test was negative on October 09. Test for influenza A and B antigen was negative on October 09. Group A strep screen was negative. Urine legionella test was negative on October 10. Test for tuberculosis/T-SPOT test report is pending. Viral hepatitis profile on October 13 is negative. 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 He was found with a large right pleural effusion for which he has had thoracentesis. Analysis is consistent with an exudative fluid. Initial WBC count on the fluid was 149 with 96% lymphocytes. In this patient with fevers, no significant leukocytosis, pleural effusion with lymphocytic predominance. Differential diagnosis includes tuberculosis, malignancy, or an atypical fungal infection. Monocytosis on CBC raises concern for possible malignancy or tuberculosis. I suggest to discontinue vancomycin in the light of negative cultures. Continue levofloxacin for at least 14-day course of treatment. Followup on the test for tuberculosis. Consider repeating CT scan of the chest, abdomen, and pelvis to evaluate for possible malignancy. I would discuss this patient with the primary physician, whom I thank for the consult and the opportunity to participate in the patient's care. MD LYNSEY Walsh/[facility] /[id number]
--- NOTE | 2018-10-14 17:52 | Progress Note ---
DATE: 10/14/2018 Pulmonary Critical Care Progress Note SUBJECTIVE: The patient feels better. He has less fever and less dyspnea. He has drained another several 100 mL from his chest tube. PHYSICAL EXAMINATION: VITAL SIGNS: The patient is afebrile. The T-max is 99.8. The blood pressure is 120/61, saturation is 94% on 2 L. HEENT: Shows no facial swelling or erythema. The nasal mucosa is normal. LYMPHATIC: Shows no submandibular, cervical, or supraclavicular adenopathy. CARDIAC: Reveals regular rate and rhythm with normal S1, S2. There are no murmurs or rubs heard. LUNGS: Auscultation of lungs reveals clear breath sounds bilaterally. There is no wheezing. ABDOMEN: Soft, nontender. There is no rebound or guarding. EXTREMITIES: Show no leg edema or calf tenderness. There is no cyanosis or clubbing. SKIN: Shows no rashes. IMPRESSION: Pneumonia with parapneumonic effusion. PLAN: 1. The patient will have repeat chest x-ray today. 2. Continue antibiotics. 3. If pleural effusion does not resolve or shows more loculation, then a thoracotomy and decortication might be necessary. Espinoza Harry MD [facility] /[id number]
--- NOTE | 2018-10-14 19:00 | NUR ---
patient received awake, alert, lying quietly in bed. no c/o pain noted. right chest tube remains to 20 cm h20 suction. dressing to right chest tube site remains c,d,i. pm assessment complete. patient instructed to call for assistance when needed.
[2018-10-15] VITALS (8 sets, daily range): BP systolic 100–116; BP diastolic 61–67
[2018-10-15] MEDS: IPRATROPIUM BROMIDE 0.02% 2.5 ML NEB NEB SCH ×4 (00:22→19:15)
--- NOTE | 2018-10-15 05:44 | Diagnostic Imaging Report ---
EXAMINATION: CHEST 2 VIEWS INDICATION: ^Pleural effusion COMPARISON: CT chest 10/14/2018. Chest x-ray 10/13/2018. FINDINGS: PA and lateral views TUBES and LINES: Right pigtail chest tube in place. LUNGS: Lungs are well inflated. Right basilar atelectasis and/or consolidation secondary to the pleural effusion. Left lung is clear. PLEURA: Slight decrease of loculated moderate right pleural effusion. No left pleural effusion. No pneumothorax. HEART AND MEDIASTINUM: The cardiomediastinal silhouette is unremarkable. BONES AND SOFT TISSUES: No acute osseous lesion. Soft tissues are unremarkable. UPPER ABDOMEN: No free air under the diaphragm. IMPRESSION: No change in moderate right pleural effusion with chest tube in place. Signed by: Dr. Duane Yoder M.D. on 10/15/2018 5:40 AM
--- NOTE | 2018-10-15 05:45 | NUR ---
patient out of room to radiology dept via for 2 view chest exray. patient back in bed with assistance. scd's placed on both legs. chest tube placed back to suction. no c/o pain or discomfort noted.
[2018-10-15] MEDS: ALBUTEROL SULF 0.083% NEB SOLN 3 ML NEB NEB SCH ×4 (06:30→19:15)
[2018-10-15] MEDS: FAMOTIDINE 20 MG TAB PO SCH ×2 (07:30→16:30)
--- NOTE | 2018-10-15 07:30 | NUR ---
IM- progress note O/N; no events roS; no cp/leg pain/vision changes/back pain/skin rash/diarrhea/N/V. V/S: rev'd PE tired appearing anicteric ns1s2 reduced BS; fine crackles at right lung base soft nt nd no e/t a&ox3; armstrong skin dry n. affect labs/med;s rev'd A/P: 37yoM Right pleural effusion R. PNA Obesity BMI 31.5 Hyponatremia Transaminitis Current smoker PLAN s/p thoracentesis 2600ml removed check hepatitis panel check BNP hba1c/lipids/TSH scd/pepcid dispo: 10/10 doing better; get f/u cxr. HIV and flu neg; check MICHELLE and RF; hba1c neg. TSH normal; 10/11 d/w - appears to be loculated right pleural effusion- reaccumulated. Agree with CV surgery consult. 200cc fluid removed by 2nd thoracentesis; Pt comfortable; no resp distress. 10/12 f/u labs; chest tube this am. 10/13 s/p chest tube; f/u sx plan. RF negative; MICHELLE neg; check acute hepatitis panel. 10/14 subtherapeutic vanco; ID consult. Pt was seen by CV surgery. awaiting plan of care. 10/15 persistent right pleural effusion; chest tube in place; Thoracotomy/decortication likely. Reginald Méndez MD, PhD.
--- NOTE | 2018-10-15 07:30 | NUR ---
PATIENT IN BED WITH HEAD OF BED ELEVATED TALKING ON THE PHONE, NO RESPIRATORY DISTRESS OBSERVED. O2 IN PLACE VIA N/C. DENIED PAIN AT THIS TIME. BED IN LOWER POSITION, CALL LIGHT AT REACH.
[2018-10-15] MEDS: LEVOFLOXACIN 750MG/D5W 150ML 150 ML IV SCH (09:09)
--- NOTE | 2018-10-15 11:35 | NUR ---
URINAL EMPTIED AND CLEANSED, PATIENT IN BED RESTING WITH NO S/S OF DISCOMFORT. CALL LIGHT AT REACH.
--- NOTE | 2018-10-15 16:08 | NUR ---
Nutrition Screen Note RD Recommendation for Physician: -Continue current diet as ordered Plan of Care: RD following, monitoring for tolerance and adequacy Nutrition reason for involvement: LOS Primary Diagnose(s): Right pleural effusion, PNA PMH: None per chart Ht: 65in Wt: 183.31lb BMI: 30.5kg/m2 IBW: 136lb RD Assessment: (10/15) Chart reviewed. Labs and meds reviewed. 37yo M, who was admitted for dyspnea and fever. Visited pt in the room. Pt reported good appetite without any GI issue. No complains of chewing or swallowing difficulty. No recent weight loss reported. Will continue to monitor and follow. Current Diet: regular diet Malnutrition Evaluation (10/15) The patient does not meet criteria for a specified degree of malnutrition at this time. Will re-evaluate at follow-up as appropriate. Diet Education Needs Assessment: Diet education not indicated. Nutrition Care Level: low Signed: Yara Flores, MS, RD, LD
--- NOTE | 2018-10-15 16:23 | NUR ---
PATIENT IN BED RESTING WITH NO S/S OF DISCOMFORT. BED IN LOWER POSITION, CALL LIGHT AT REACH.
--- NOTE | 2018-10-15 19:53 | Progress Note ---
DATE: 10/15/2018 SUBJECTIVE: The patient is resting quietly. He is in no acute distress. He is not coughing much currently. No significant sputum production. No report of nausea, vomiting, or diarrhea. No other systemic complaints reported. OBJECTIVE: VITAL SIGNS: In the past 24 hours; his maximum temperature was 100 degrees Fahrenheit, his most recent temperature 99.8. GENERAL: He is hemodynamically stable. There is no gross pallor. No obvious icterus. No oropharyngeal lesions. NECK: Supple. CHEST: Symmetric. Breath sounds are decreased in lung bases. Right chest tube is in place. HEART: Sounds are regular without a significant murmur. ABDOMEN: Soft, nontender. Bowel sounds are normal. EXTREMITIES: There is no acute erythema of his extremities. LABORATORY DATA: His white count on October 13 is 8.2, hemoglobin 12.1, and platelet count 578. His serum creatinine is 0.8. There are no significant positive cultures. T-SPOT TB test report is still not available. IMPRESSION: He has a febrile illness without significant leukocytosis. There is monocytosis on his CBC differential. He has a large pleural effusion with lymphocytic predominance. His HIV is seronegative. Differential diagnosis of this constellation of findings includes tuberculosis, malignancy, and atypical infection such as fungal infection. He has had thoracentesis and chest tube placement. He is being considered for thoracotomy, pleural biopsy, and bronchoscopy. I suggest continue current management. I have discussed the patient with Dr. Espinoza Harry as well as with Dr. Reginald Méndez. I have discussed the findings and plans with the patient at the bedside. MD LYNSEY Walsh/MODL /[id number]
[2018-10-16] VITALS (15 sets, daily range): BP systolic 102–148; BP diastolic 63–90
[2018-10-16] MEDS: IPRATROPIUM BROMIDE 0.02% 2.5 ML NEB NEB SCH ×5 (00:10→23:50)
[2018-10-16] MEDS: ALBUTEROL SULF 0.083% NEB SOLN 3 ML NEB NEB SCH ×7 (00:10→23:50)
[2018-10-16 07:11] LABS: BASOPHILS # (AUTO) 0.1 (0.0-0.1); BASOPHILS % 0.9 % (0.0-1.0); EOSINOPHILS # (AUTO) 0.2 (0.0-0.4); EOSINOPHILS % 2.2 % (0.0-6.0); HEMATOCRIT 37.6 % (38.2-49.6); HEMOGLOBIN 12.1 g/dL (14.0-18.0); LYMPHOCYTES # (AUTO) 2.1 (1.0-3.2); LYMPHOCYTES % 26.9 % (18.0-39.1); MEAN CORPUSCULAR HEMOGLOBIN 28.4 pg (28-32); MEAN CORPUSCULAR HGB CONC 32.2 g/dL (31-35); MEAN CORPUSCULAR VOLUME 88.3 fL (81-99); MONOCYTES # (AUTO) 1.2 (0.2-0.8); MONOCYTES % 15.9 % (4.4-11.3); NEUTROPHILS # (AUTO) 4.1 (2.1-6.9); NEUTROPHILS % 53.6 % (38.7-80.0); PLATELET COUNT 593 x10e3/uL (140-360); RED BLOOD COUNT 4.26 x10e6/uL (4.3-5.7); RED CELL DISTRIBUTION WIDTH 12.4 % (11.7-14.4)
[2018-10-16 07:16] LABS: INR 1.04; PROTHROMBIN TIME 14.1 seconds (11.9-14.5)
[2018-10-16 07:17] LABS: PARTIAL THROMBOPLASTIN TIME 42.8 seconds (23.8-35.5)
[2018-10-16] MEDS ORDERED: HEPARIN SOD/SOD CHLORIDE 1,000 ML ONE (07:24)
--- NOTE | 2018-10-16 07:24 | NUR ---
Patient endorsed to next shift for continuity of care.
[2018-10-16 07:29] LABS: ALANINE AMINOTRANSFERASE 316 IU/L (0-55); ALBUMIN 2.4 g/dL (3.5-5.0); ALBUMIN/GLOBULIN RATIO 0.4 (0.8-2.0); ALKALINE PHOSPHATASE 149 IU/L (40-150); ANION GAP 13.4 mmol/L (8-16); BLOOD UREA NITROGEN 11 mg/dL (7-26); BUN/CREATININE RATIO 13 (6-25); CALCIUM 9.4 mg/dL (8.4-10.2); CARBON DIOXIDE 24 mmol/L (22-29); CHLORIDE 101 mmol/L (98-107); CREATININE, SERUM 0.83 mg/dL (0.72-1.25); EST GLOMERULAR FILTRATION RATE > 60 ML/MIN (60-); GLUCOSE 98 mg/dL (74-118); POTASSIUM 4.4 mmol/L (3.5-5.1); SODIUM 134 mmol/L (136-145)
[2018-10-16] MEDS: FAMOTIDINE 20 MG TAB PO SCH ×2 (07:30→17:15)
--- NOTE | 2018-10-16 07:30 | NUR ---
OR staff on unit to take patient to OR for procedure. Pt is aox4 and able to verbalize needs. Breaths are even and unlabored on 3L/NC. Right chest tube in place and connected to suction at 20. Denies any pain at this time.
[2018-10-16] MEDS ORDERED: LIDOCAINE HCL 4% 50 ML BTL ONE (07:54)
[2018-10-16] MEDS ORDERED: LIDOCAINE HCL 2% 30 ML TUBE ONE (07:54)
--- NOTE | 2018-10-16 08:00 | NUR ---
Received call from household personal assistant that pt will be moving to ICU after procedure is done.
[2018-10-16] MEDS: LEVOFLOXACIN 750MG/D5W 150ML 150 ML IV SCH (09:00)
[2018-10-16] MEDS ORDERED: MUPIROCIN 2% OINT 22 GM TUBE ONE (09:53)
[2018-10-16] MEDS ORDERED: SODIUM CHLORIDE 0.9% 250ML 250 ML IV ONE (10:00)
[2018-10-16] MEDS ORDERED: HYDROMORPHONE 2MG/ML 2 MG/ML ML ONE (10:31)
[2018-10-16] MEDS: SODIUM CHLORIDE 0.9% 1000ML 1,000 ML IV SCH ×2 (12:59→22:19)
[2018-10-16] MEDS ORDERED: TUBERCULIN, PPD INJ 5 TU/0.1 ML INJ ID ONE (13:30)
[2018-10-16 13:51] LABS: BASOPHILS % 0.2 % (0.0-1.0); HEMATOCRIT 35.9 % (38.2-49.6); HEMOGLOBIN 11.8 g/dL (14.0-18.0); LYMPHOCYTES # (AUTO) 0.8 (1.0-3.2); LYMPHOCYTES % 6.4 % (18.0-39.1); MEAN CORPUSCULAR HEMOGLOBIN 29.6 pg (28-32); MEAN CORPUSCULAR HGB CONC 32.9 g/dL (31-35); MONOCYTES # (AUTO) 0.3 (0.2-0.8); MONOCYTES % 2.7 % (4.4-11.3); NEUTROPHILS # (AUTO) 11.2 (2.1-6.9); NEUTROPHILS % 89.8 % (38.7-80.0); PLATELET COUNT 580 x10e3/uL (140-360); RED BLOOD COUNT 3.99 x10e6/uL (4.3-5.7); RED CELL DISTRIBUTION WIDTH 12.4 % (11.7-14.4)
[2018-10-16 14:07] LABS: BLOOD UREA NITROGEN 14 mg/dL (7-26); BUN/CREATININE RATIO 17 (6-25); CALCIUM 8.8 mg/dL (8.4-10.2); CARBON DIOXIDE 25 mmol/L (22-29); CHLORIDE 101 mmol/L (98-107); CREATININE, SERUM 0.81 mg/dL (0.72-1.25); EST GLOMERULAR FILTRATION RATE > 60 ML/MIN (60-); GLUCOSE 145 mg/dL (74-118); SODIUM 133 mmol/L (136-145)
--- NOTE | 2018-10-16 14:08 | NUR ---
PPD TO RIGHT FOREARM DONE, TO BE CHECKED ON FRIDAY.
--- NOTE | 2018-10-16 14:29 | NUR ---
IM- progress note O/N; no events roS; no cp/leg pain/vision changes/back pain/skin rash/diarrhea/N/V. V/S: rev'd PE tired appearing anicteric ns1s2 reduced BS; fine crackles at right lung base soft nt nd no e/t a&ox3; armstrong skin dry n. affect labs/med;s rev'd A/P: 37yoM Right pleural effusion R. PNA Obesity BMI 31.5 Hyponatremia Transaminitis Current smoker PLAN s/p thoracentesis 2600ml removed check hepatitis panel check BNP hba1c/lipids/TSH scd/pepcid dispo: 10/10 doing better; get f/u cxr. HIV and flu neg; check MICHELLE and RF; hba1c neg. TSH normal; 10/11 d/w - appears to be loculated right pleural effusion- reaccumulated. Agree with CV surgery consult. 200cc fluid removed by 2nd thoracentesis; Pt comfortable; no resp distress. 10/12 f/u labs; chest tube this am. 10/13 s/p chest tube; f/u sx plan. RF negative; MICHELLE neg; check acute hepatitis panel. 10/14 subtherapeutic vanco; ID consult. Pt was seen by CV surgery. awaiting plan of care. 10/15 persistent right pleural effusion; chest tube in place; Thoracotomy/decortication likely. 10/16 borderline Tspot. s/p thoracotomy- pain controlled; f/u path studies; continue airborne precautions. Reginald Méndez MD, PhD.
[2018-10-16] MEDS ORDERED: LABETALOL HCL 20 MG/4 ML SYRINGE IV PRN (14:30)
[2018-10-16] MEDS: HYDROCODONE/APAP 5MG-325MG TAB PO PRN (15:15)
--- NOTE | 2018-10-16 15:38 | Progress Note ---
DATE: 10/16/2018 SUBJECTIVE: The patient has been transferred to the intensive care unit post thoracotomy with right chest tube placement. He is awake and responsive. He has right chest pain. He is not coughing currently. No dyspnea at rest. No vomiting. No diarrhea. No overt medication reaction reported. OBJECTIVE: VITAL SIGNS: Maximum temperature overnight was up to 99.8 degrees Fahrenheit, his current temperature 97 degrees. GENERAL: He is hemodynamically stable. There is no gross pallor. No obvious icterus. No oropharyngeal lesions. NECK: Supple. CHEST: Symmetric. Breath sounds are coarse in the lungs beauchamp. Right chest tube is in place with bloody drainage. EXTREMITIES: No acute erythema of his extremities. LABORATORY DATA: His white count is 7.6, hemoglobin 12.1, and platelet count 593. His serum creatinine is 0.8. His T-SPOT test is reported to be borderline positive. He had bronchoscopy today also, specimens have been sent. Report is pending. IMPRESSION: He has had fever without much leukocytosis. He had large right pleural effusion with lymphocytic predominance. There is monocytosis. Pleural fluid cultures are so far have been negative. Blood cultures are negative. His HIV is seronegative. I suggest current management. Follow up on the pleural biopsy report. Follow up on the bronchoscopy report. Follow up on the histopathology. Given the borderline T-SPOT test, we should also get PPD test. We will hopefully aid in making the diagnosis or ruling tuberculosis out. The differential diagnosis remain tuberculosis, atypical infection such as fungal infection or malignancy. I have discussed the patient with Dr. Harry. I have discussed the patient with Dr. Méndez. I have discussed the findings and plans with the patient at bedside. MD LYNSEY Walsh/MODL /[id number]
--- NOTE | 2018-10-16 16:03 | Diagnostic Imaging Report ---
EXAM: CHEST SINGLE (PORTABLE) DATE: 10/16/2018 2:53 PM INDICATION: Pleural effusion, post thoracotomy COMPARISON: Chest x-ray, 10/15/2018 FINDINGS: Lines and tubes: Interval placement of large bore right chest tube. The narrow bore pigtail right pleural drainage catheter is no longer seen. Heart size normal. Again noted is a small to moderate right pleural effusion which appears decreased since last exam. There is right lower lobe opacity, likely due to atelectasis. Left lung remains expanded and clear. No pneumothorax. Upper abdomen unremarkable. No acute bony abnormality. IMPRESSION: Decreased right pleural effusion, with removal of pigtail drain and placement of large bore chest tube. No pneumothorax. Right lower lobe atelectasis is seen. Signed by: Dr. Jeb Riddle M.D. on 10/16/2018 4:00 PM
[2018-10-16] MEDS: MORPHINE SULFATE INJ 4 MG/ML INJ 1ML IV PRN ×2 (16:10→22:01)
[2018-10-16] MEDS ORDERED: LABETALOL HCL 5 MG/ML 20ML VIAL IV PRN (16:15)
--- NOTE | 2018-10-16 17:02 | NUR ---
PT TRANSFERRED TO ROOM 108 Addendum: 10/18/18 at 0736 by Renee Portillo RN INCORRECT PATIENT
[2018-10-16] MEDS: ENOXAPARIN SOD INJ 40 MG/0.4 ML SYR SC SCH (17:15)
[2018-10-16] MEDS ORDERED: FENTANYL CITRATE/PF 100MCG/2 ML INJ ONE (18:22)
[2018-10-16] MEDS ORDERED: MIDAZOLAM HCL 2 MG/2 ML VIAL ONE (18:22)
[2018-10-16] MEDS ORDERED: ONDANSETRON HCL INJ 2MG/ML 2ML 2 MG/ML VIAL ONE (18:29)
[2018-10-16] MEDS ORDERED: DEXAMETHASONE SOD PHOS INJ 4 MG/ML VIAL ONE (18:29)
[2018-10-16] MEDS ORDERED: ROCURONIUM BROMIDE 10 MG/ML 5ML VIAL ONE (18:29)
[2018-10-16] MEDS ORDERED: LIDOCAINE HCL 2% LOCAL INJ 5 ML SDV VIAL INJ ONE (18:29)
[2018-10-16] MEDS ORDERED: ACETAMINOPHEN 1000 MG/100 ML IV ONE (18:29)
[2018-10-16] MEDS ORDERED: PROPOFOL IV EMULSION 10 MG/ML 20 ML VIAL ONE (18:29)
[2018-10-16] MEDS ORDERED: SEVOFLURANE INHAL SOLN 250 ML PEN BTL ONE (18:29)
--- NOTE | 2018-10-16 18:38 | Progress Note ---
DATE: 10/16/2018 SUBJECTIVE: The patient went for a limited thoracotomy and bronchoscopy today. The patient had thickening of the visceral pleura and some trapped lung. The patient also had a small mass-like lesion in the anterior mediastinum that was biopsied. Fluid was removed and specimens were obtained. The patient is now in the ICU. He has a chest tube in place. He complains of some pain, but is not complaining of dyspnea or cough. PHYSICAL EXAMINATION: VITAL SIGNS: The patient is afebrile. The blood pressure is 114/75 and the saturation is 99% on 3 L. HEENT: Shows no facial swelling or erythema. There is a chest tube in place on the right side. CARDIAC: Reveals a regular rate and rhythm with a normal S1 and S2. There are no murmurs or rubs. LUNGS: Auscultation of lungs reveals decreased breath sounds at the bases. There is no wheezing. ABDOMEN: Soft, nontender. There is no rebound or guarding. EXTREMITIES: Show no leg edema or calf tenderness. There is no cyanosis or clubbing. IMPRESSION: 1. Status post limited thoracotomy with decortication. 2. Infectious pleural effusion. PLAN: 1. Await microbiology and pathology results. 2. Continue current antibiotics. 3. Continue pain control. Espinoza Harry MD [facility]/PARTH /[id number]
[2018-10-17] VITALS (37 sets, daily range): BP systolic 105–133; BP diastolic 62–85
[2018-10-17] MEDS: HYDROCODONE/APAP 5MG-325MG TAB PO PRN ×3 (00:42→20:35)
[2018-10-17] MEDS: MORPHINE SULFATE INJ 4 MG/ML INJ 1ML IV PRN ×6 (01:43→21:35)
[2018-10-17] MEDS: ALBUTEROL SULF 0.083% NEB SOLN 3 ML NEB NEB SCH ×6 (03:00→22:45)
--- NOTE | 2018-10-17 03:00 | NUR ---
BED BATH GIVEN WITH LINEN CHANGED WITH A CHG WIPE DOWN. CHANGED OUT SCDs SLEEVES, CURRENT ONES VERY DIRTY. BP CUFF CHANGED ALSO DUE TO SAME REASON OF THE SCDs. PATIENT DID HAVE DISCOMFORT MODERATE PAIN UNTIL TURNING TO RIGHT SIDE. MEDICATED HIM EARLIER, WILL MEDICATE WHEN TIME IF PATIENT STILL NEEDS PRN PAIN MED. CHEST TUBE INTACT, DRESSING STILL DRY AND INTACTG Addendum: 10/17/18 at 0330 by Charo Zavala RN AFTER PATIENT WAS GIVEN TWO SMALL CAN DRINKS ALONG WITH A PUDDING. HIS DIET ORDER WAS TO ADVANCE TOLERATED. PATIENT HAS TOLERATED THAT WELL
[2018-10-17 05:22] LABS: BASOPHILS % 0.3 % (0.0-1.0); EOSINOPHILS # (AUTO) 0.1 (0.0-0.4); EOSINOPHILS % 0.6 % (0.0-6.0); HEMATOCRIT 31.5 % (38.2-49.6); HEMOGLOBIN 10.2 g/dL (14.0-18.0); LYMPHOCYTES # (AUTO) 2.4 (1.0-3.2); LYMPHOCYTES % 23.2 % (18.0-39.1); MEAN CORPUSCULAR HEMOGLOBIN 29.1 pg (28-32); MEAN CORPUSCULAR HGB CONC 32.4 g/dL (31-35); MONOCYTES # (AUTO) 1.4 (0.2-0.8); NEUTROPHILS # (AUTO) 6.6 (2.1-6.9); NEUTROPHILS % 62.3 % (38.7-80.0); PLATELET COUNT 516 x10e3/uL (140-360); RED CELL DISTRIBUTION WIDTH 12.4 % (11.7-14.4)
[2018-10-17 05:47] LABS: ALANINE AMINOTRANSFERASE 190 IU/L (0-55); ALBUMIN 2.1 g/dL (3.5-5.0); ALBUMIN/GLOBULIN RATIO 0.5 (0.8-2.0); ALKALINE PHOSPHATASE 111 IU/L (40-150); ANION GAP 11.1 mmol/L (8-16); BLOOD UREA NITROGEN 11 mg/dL (7-26); BUN/CREATININE RATIO 16 (6-25); CALCIUM 8.5 mg/dL (8.4-10.2); CARBON DIOXIDE 25 mmol/L (22-29); CHLORIDE 103 mmol/L (98-107); CREATININE, SERUM 0.68 mg/dL (0.72-1.25); EST GLOMERULAR FILTRATION RATE > 60 ML/MIN (60-); GLUCOSE 108 mg/dL (74-118); POTASSIUM 4.1 mmol/L (3.5-5.1); SODIUM 135 mmol/L (136-145)
[2018-10-17] MEDS: IPRATROPIUM BROMIDE 0.02% 2.5 ML NEB NEB SCH ×3 (07:55→19:30)
[2018-10-17] MEDS: FAMOTIDINE 20 MG TAB PO SCH ×2 (09:00→16:09)
[2018-10-17] MEDS: PANTOPRAZOLE SOD 40 MG TABEC PO SCH (09:00)
--- NOTE | 2018-10-17 09:09 | Diagnostic Imaging Report ---
EXAM: CHEST SINGLE (PORTABLE) INDICATION: Chest tube. COMPARISON: Chest x-ray, 10/16/2018. FINDINGS: Right basilar chest tube. Persistent moderate right pleural effusion. Opacity in the right lower lung likely represents atelectasis. Left lung is clear. No new consolidation. No evidence of pneumothorax. The cardiomediastinal silhouette is unremarkable. Upper abdomen unremarkable. No acute bony abnormality. IMPRESSION: Right basilar chest tube with persistent moderate right pleural effusion and associated atelectasis. No evidence of pneumothorax. Signed by: Dr. Kellie Clifton MD on 10/17/2018 9:06 AM
[2018-10-17] MEDS: LEVOFLOXACIN 750MG/D5W 150ML 150 ML IV SCH (09:58)
[2018-10-17] MEDS: ACETAMINOPHEN 325 MG TAB PO PRN ×2 (11:29→18:00)
[2018-10-17] MEDS: ENOXAPARIN SOD INJ 40 MG/0.4 ML SYR SC SCH (16:09)
--- NOTE | 2018-10-17 17:09 | Progress Note ---
DATE: 10/17/2018 SUBJECTIVE: The patient is resting in bed. He is complaining of pain at the right chest tube side. He is not coughing much. No nausea, vomiting, or diarrhea. No adverse medication reaction reported. OBJECTIVE: VITAL SIGNS: In the past 24 hours, temperatures are ranged from 97 degrees to current temperature of 100.8 degrees Fahrenheit. GENERAL: He is hemodynamically stable. There is no gross pallor. No obvious icterus. No oropharyngeal lesions. NECK: Supple. CHEST: Symmetric. Breath sounds are decreased at the right lung base. HEART: Sounds are regular without any murmur. ABDOMEN: Soft. Bowel sounds are normal. EXTREMITIES: There is no acute erythema of the extremities. LABORATORY DATA: His white count is 10.5, hemoglobin 10.2, and platelet count 516. His creatinine is 0.6. There are no new positive culture reports. There are no new pathology reports. IMPRESSION: He has a febrile illness without much leukocytosis associated with large right pleural effusion with lymphocytic predominance. Differential diagnosis include tuberculosis, malignancy, or atypical infection such as fungal infection. He has had thoracotomy with right chest tube placement. He still has intermittent low-grade temperatures. I suggest continue current management. Monitor temperature, CBC, and renal function. Followup on his cultures. His PPD is so far nonreactive. I have discussed the findings and plans with the patient and his cousin at the bedside. I have discussed with Dr. Harry. MD LYNSEY Walsh/PARTH /[id number]
[2018-10-18] VITALS (36 sets, daily range): BP systolic 107–139; BP diastolic 66–81
[2018-10-18] MEDS: HYDROCODONE/APAP 5MG-325MG TAB PO PRN ×3 (00:48→20:35)
[2018-10-18] MEDS: ALBUTEROL SULF 0.083% NEB SOLN 3 ML NEB NEB SCH ×7 (02:35→23:55)
[2018-10-18] MEDS: IPRATROPIUM BROMIDE 0.02% 2.5 ML NEB NEB SCH ×5 (02:35→23:55)
[2018-10-18 05:00] LABS: BASOPHILS % 0.4 % (0.0-1.0); EOSINOPHILS % 0.5 % (0.0-6.0); HEMATOCRIT 32.4 % (38.2-49.6); HEMOGLOBIN 10.4 g/dL (14.0-18.0); LYMPHOCYTES # (AUTO) 1.8 (1.0-3.2); LYMPHOCYTES % 21.3 % (18.0-39.1); MEAN CORPUSCULAR HEMOGLOBIN 28.7 pg (28-32); MEAN CORPUSCULAR HGB CONC 32.1 g/dL (31-35); MEAN CORPUSCULAR VOLUME 89.5 fL (81-99); MONOCYTES # (AUTO) 1.3 (0.2-0.8); MONOCYTES % 15.2 % (4.4-11.3); NEUTROPHILS # (AUTO) 5.3 (2.1-6.9); PLATELET COUNT 524 x10e3/uL (140-360); RED BLOOD COUNT 3.62 x10e6/uL (4.3-5.7); RED CELL DISTRIBUTION WIDTH 12.5 % (11.7-14.4)
[2018-10-18] MEDS: MORPHINE SULFATE INJ 4 MG/ML INJ 1ML IV PRN ×4 (05:20→22:20)
[2018-10-18 05:31] LABS: ALANINE AMINOTRANSFERASE 128 IU/L (0-55); ALBUMIN 2.1 g/dL (3.5-5.0); ALBUMIN/GLOBULIN RATIO 0.4 (0.8-2.0); ALKALINE PHOSPHATASE 107 IU/L (40-150); BLOOD UREA NITROGEN 10 mg/dL (7-26); BUN/CREATININE RATIO 13 (6-25); CALCIUM 8.6 mg/dL (8.4-10.2); CARBON DIOXIDE 26 mmol/L (22-29); CHLORIDE 99 mmol/L (98-107); CREATININE, SERUM 0.79 mg/dL (0.72-1.25); EST GLOMERULAR FILTRATION RATE > 60 ML/MIN (60-); GLUCOSE 95 mg/dL (74-118); SODIUM 132 mmol/L (136-145)
--- NOTE | 2018-10-18 06:42 | Diagnostic Imaging Report ---
EXAMINATION: CHEST SINGLE (PORTABLE) INDICATION: ^Pleural effusion / mini-thoracotomy COMPARISON: Chest x-ray 10/17/2018. FINDINGS: AP view Right basilar chest tube. Persistent moderate right pleural effusion. Opacity in the right lower lung likely represents atelectasis. Left lung is clear. No new consolidation. No evidence of pneumothorax. The cardiomediastinal silhouette is unremarkable. Upper abdomen unremarkable. No acute bony abnormality. IMPRESSION: Right basilar chest tube with persistent moderate right pleural effusion and associated atelectasis. No evidence of pneumothorax. Signed by: Dr. Duane Yoder M.D. on 10/18/2018 6:38 AM
[2018-10-18] MEDS: FAMOTIDINE 20 MG TAB PO SCH ×2 (07:35→16:18)
[2018-10-18] MEDS: PANTOPRAZOLE SOD 40 MG TABEC PO SCH (07:35)
[2018-10-18] MEDS: LEVOFLOXACIN 750MG/D5W 150ML 150 ML IV SCH (08:23)
--- NOTE | 2018-10-18 11:11 | NUR ---
IM- progress note O/N; no events roS; no cp/leg pain/vision changes/back pain/skin rash/diarrhea/N/V. V/S: rev'd PE tired appearing anicteric ns1s2 reduced BS; fine crackles at right lung base soft nt nd no e/t a&ox3; armstrong skin dry n. affect labs/med;s rev'd A/P: 37yoM Right pleural effusion R. PNA with parapneumonic effusion Obesity BMI 31.5 Hyponatremia Transaminitis Current smoker PLAN s/p thoracentesis 2600ml removed check hepatitis panel check BNP hba1c/lipids/TSH scd/pepcid dispo: 10/10 doing better; get f/u cxr. HIV and flu neg; check MICHELLE and RF; hba1c neg. TSH normal; 10/11 d/w - appears to be loculated right pleural effusion- reaccumulated. Agree with CV surgery consult. 200cc fluid removed by 2nd thoracentesis; Pt comfortable; no resp distress. 10/12 f/u labs; chest tube this am. 10/13 s/p chest tube; f/u sx plan. RF negative; MICHELLE neg; check acute hepatitis panel. 10/14 subtherapeutic vanco; ID consult. Pt was seen by CV surgery. awaiting plan of care. 10/15 persistent right pleural effusion; chest tube in place; Thoracotomy/decortication likely. 10/16 borderline Tspot. s/p thoracotomy- pain controlled; f/u path studies; continue airborne precautions. 10/17 no malignant cells in pleural effusion; 10/18 cont care Reginald Méndez MD, PhD.
--- NOTE | 2018-10-18 15:00 | NUR ---
ROUNDING AT THIS TIME PPD TO RFA CHECKED, STATES IT IS POSITIVE PPD READING MEASURING AT 2.3X2.5 CM.
[2018-10-18] MEDS: ENOXAPARIN SOD INJ 40 MG/0.4 ML SYR SC SCH (16:18)
[2018-10-18] MEDS: ACETAMINOPHEN 325 MG TAB PO PRN (16:44)
--- NOTE | 2018-10-18 17:28 | Progress Note ---
DATE: 10/18/2018 SUBJECTIVE: The patient is alert and responsive. He is in no acute distress. He is not coughing currently. No dyspnea at rest. He says there is less pain at the chest tube site in the right chest. OBJECTIVE: VITAL SIGNS: Maximum temperature overnight was up to 101.7 degrees Fahrenheit. His most recent temperature is 98.4. GENERAL: He is hemodynamically stable. HEENT: He has no gross pallor. No obvious icterus. No oropharyngeal lesions. NECK: Supple. CHEST: Symmetric. Breath sounds are decreased at lung bases. HEART: Sounds are regular without any significant murmur. ABDOMEN: Full, soft, nontender. Normal bowel sounds. EXTREMITIES: No acute erythema of his extremities. LABORATORY DATA: His white count is 8.5, hemoglobin 10.24, and platelet count 524. Differentials on his white count significant for 15% monocytosis. His serum creatinine is 0.7. His liver function tests are abnormal with AST down to 43 from 174 on October 13, ALT is down to 128 from 292 on October 13, alkaline phosphatase is normal, total bilirubin is down to 0.8. AFB smears and cultures are pending. PPD test on the right arm measures 2.3 x 2.5 cm in induration. IMPRESSION: He has a febrile illness with a large right pleural effusion with lymphocytic predominance, monocytosis on his peripheral CBC. His PPD is positive measuring 2.3 x 2.5 cm. He is from the [facility], most likely he has tuberculosis. He had thoracentesis. Pleural fluid pathology shows low malignancy. I suggest we will check with pathology in the morning; if there is still no report of malignancy, we will consider starting the patient on an anti-TB regimen. We will also check his liver function tests overnight. It has been abnormal and seem to be improving. I have discussed the patient with the primary physician. MD LYNSEY Walsh/MODL /[id number]
[2018-10-19] VITALS (25 sets, daily range): BP systolic 99–128; BP diastolic 65–76
[2018-10-19] MEDS: HYDROCODONE/APAP 5MG-325MG TAB PO PRN ×5 (00:50→21:05)
[2018-10-19] MEDS: ALBUTEROL SULF 0.083% NEB SOLN 3 ML NEB NEB SCH ×5 (03:10→19:22)
[2018-10-19] MEDS: MORPHINE SULFATE INJ 4 MG/ML INJ 1ML IV PRN ×4 (03:45→21:15)
[2018-10-19 04:54] LABS: BASOPHILS # (AUTO) 0.1 (0.0-0.1); BASOPHILS % 0.7 % (0.0-1.0); EOSINOPHILS # (AUTO) 0.1 (0.0-0.4); EOSINOPHILS % 1.5 % (0.0-6.0); HEMATOCRIT 32.2 % (38.2-49.6); HEMOGLOBIN 10.2 g/dL (14.0-18.0); LYMPHOCYTES # (AUTO) 2.3 (1.0-3.2); LYMPHOCYTES % 31.2 % (18.0-39.1); MEAN CORPUSCULAR HGB CONC 31.7 g/dL (31-35); MEAN CORPUSCULAR VOLUME 88.5 fL (81-99); MONOCYTES # (AUTO) 1.1 (0.2-0.8); MONOCYTES % 14.8 % (4.4-11.3); NEUTROPHILS # (AUTO) 3.9 (2.1-6.9); NEUTROPHILS % 51.4 % (38.7-80.0); PLATELET COUNT 490 x10e3/uL (140-360); RED BLOOD COUNT 3.64 x10e6/uL (4.3-5.7); RED CELL DISTRIBUTION WIDTH 12.4 % (11.7-14.4)
[2018-10-19 05:09] LABS: ALANINE AMINOTRANSFERASE 164 IU/L (0-55); ALBUMIN 2.1 g/dL (3.5-5.0); ALBUMIN/GLOBULIN RATIO 0.4 (0.8-2.0); ALKALINE PHOSPHATASE 125 IU/L (40-150); ANION GAP 10.1 mmol/L (8-16); BLOOD UREA NITROGEN 9 mg/dL (7-26); BUN/CREATININE RATIO 13 (6-25); CALCIUM 8.9 mg/dL (8.4-10.2); CARBON DIOXIDE 26 mmol/L (22-29); CHLORIDE 98 mmol/L (98-107); CREATININE, SERUM 0.68 mg/dL (0.72-1.25); EST GLOMERULAR FILTRATION RATE > 60 ML/MIN (60-); GLUCOSE 97 mg/dL (74-118); POTASSIUM 4.1 mmol/L (3.5-5.1); SODIUM 130 mmol/L (136-145)
--- NOTE | 2018-10-19 06:42 | Diagnostic Imaging Report ---
EXAMINATION: CHEST SINGLE (PORTABLE) INDICATION: ^Pleural Effusion COMPARISON: Chest x-ray 10/18/2018. 10/17/2018. FINDINGS: AP view Right basilar chest tube. Persistent moderate right pleural effusion. Opacity in the right lower lung likely represents atelectasis. Left lung is clear. No new consolidation. No evidence of pneumothorax. The cardiomediastinal silhouette is unremarkable. Upper abdomen unremarkable. No acute bony abnormality. IMPRESSION: Right basilar chest tube with persistent moderate right pleural effusion and associated atelectasis. No evidence of pneumothorax. Signed by: Dr. Duane Yoder M.D. on 10/19/2018 6:38 AM
[2018-10-19] MEDS: IPRATROPIUM BROMIDE 0.02% 2.5 ML NEB NEB SCH ×3 (07:05→19:22)
[2018-10-19] MEDS: FAMOTIDINE 20 MG TAB PO SCH ×2 (08:31→16:00)
[2018-10-19] MEDS: LEVOFLOXACIN 750MG/D5W 150ML 150 ML IV SCH (08:31)
[2018-10-19] MEDS: PANTOPRAZOLE SOD 40 MG TABEC PO SCH (08:31)
[2018-10-19] MEDS: ENOXAPARIN SOD INJ 40 MG/0.4 ML SYR SC SCH (16:00)
--- NOTE | 2018-10-19 16:15 | NUR ---
IM- progress note O/N; no events roS; no cp/leg pain/vision changes/back pain/skin rash/diarrhea/N/V. V/S: rev'd PE tired appearing anicteric ns1s2 reduced BS; fine crackles at right lung base soft nt nd no e/t a&ox3; armstrong skin dry n. affect labs/med;s rev'd A/P: 37yoM Right pleural effusion R. PNA with parapneumonic effusion Obesity BMI 31.5 Hyponatremia Transaminitis Current smoker PLAN s/p thoracentesis 2600ml removed check hepatitis panel check BNP hba1c/lipids/TSH scd/pepcid dispo: 10/10 doing better; get f/u cxr. HIV and flu neg; check MICHELLE and RF; hba1c neg. TSH normal; 10/11 d/w - appears to be loculated right pleural effusion- reaccumulated. Agree with CV surgery consult. 200cc fluid removed by 2nd thoracentesis; Pt comfortable; no resp distress. 10/12 f/u labs; chest tube this am. 10/13 s/p chest tube; f/u sx plan. RF negative; MICHELLE neg; check acute hepatitis panel. 10/14 subtherapeutic vanco; ID consult. Pt was seen by CV surgery. awaiting plan of care. 10/15 persistent right pleural effusion; chest tube in place; Thoracotomy/decortication likely. 10/16 borderline Tspot. s/p thoracotomy- pain controlled; f/u path studies; continue airborne precautions. 10/17 no malignant cells in pleural effusion; 10/18 cont care 10/19 positive PPD; pleural bx reported as having caseating granulomas, d/w ; LFTs still elevated; treatment soon. Reginald Méndez MD, PhD.
[2018-10-20] VITALS (23 sets, daily range): BP systolic 99–136; BP diastolic 56–81
[2018-10-20] MEDS: ALBUTEROL SULF 0.083% NEB SOLN 3 ML NEB NEB SCH ×7 (00:10→23:55)
[2018-10-20] MEDS: IPRATROPIUM BROMIDE 0.02% 2.5 ML NEB NEB SCH ×5 (00:10→23:55)
[2018-10-20] MEDS: HYDROCODONE/APAP 5MG-325MG TAB PO PRN ×5 (02:05→21:50)
[2018-10-20] MEDS: MORPHINE SULFATE INJ 4 MG/ML INJ 1ML IV PRN ×5 (02:05→21:50)
[2018-10-20 04:54] LABS: BASOPHILS % 0.4 % (0.0-1.0); EOSINOPHILS # (AUTO) 0.2 (0.0-0.4); EOSINOPHILS % 1.8 % (0.0-6.0); HEMATOCRIT 33.6 % (38.2-49.6); HEMOGLOBIN 10.9 g/dL (14.0-18.0); LYMPHOCYTES # (AUTO) 3.1 (1.0-3.2); LYMPHOCYTES % 33.7 % (18.0-39.1); MEAN CORPUSCULAR HGB CONC 32.4 g/dL (31-35); MEAN CORPUSCULAR VOLUME 89.4 fL (81-99); MONOCYTES # (AUTO) 1.5 (0.2-0.8); MONOCYTES % 15.9 % (4.4-11.3); NEUTROPHILS # (AUTO) 4.4 (2.1-6.9); NEUTROPHILS % 47.7 % (38.7-80.0); PLATELET COUNT 503 x10e3/uL (140-360); RED BLOOD COUNT 3.76 x10e6/uL (4.3-5.7); RED CELL DISTRIBUTION WIDTH 12.5 % (11.7-14.4)
[2018-10-20 05:15] LABS: ALANINE AMINOTRANSFERASE 161 IU/L (0-55); ALBUMIN 2.1 g/dL (3.5-5.0); ALBUMIN/GLOBULIN RATIO 0.4 (0.8-2.0); ALKALINE PHOSPHATASE 153 IU/L (40-150); ANION GAP 13.3 mmol/L (8-16); BLOOD UREA NITROGEN 11 mg/dL (7-26); BUN/CREATININE RATIO 13 (6-25); CALCIUM 9.2 mg/dL (8.4-10.2); CARBON DIOXIDE 27 mmol/L (22-29); CHLORIDE 96 mmol/L (98-107); CREATININE, SERUM 0.85 mg/dL (0.72-1.25); EST GLOMERULAR FILTRATION RATE > 60 ML/MIN (60-); GLUCOSE 96 mg/dL (74-118); POTASSIUM 4.3 mmol/L (3.5-5.1); SODIUM 132 mmol/L (136-145)
--- NOTE | 2018-10-20 07:29 | Diagnostic Imaging Report ---
EXAM: CHEST SINGLE (PORTABLE), AP Portable DATE: 10/20/2018 Time stamp on exam: 6:09 AM INDICATION: Respiratory distress with right pleural effusion COMPARISON: 10/19/2018 FINDINGS: LINES/TUBES: Right basilar chest tube again noted. LUNGS: Diffuse right pulmonary opacities. Left linear subsegmental atelectasis. PLEURA: Unchanged small right pleural effusion. HEART AND MEDIASTINUM: Mild cardiac prominence. BONES AND SOFT TISSUES: No acute findings. IMPRESSION: 1. Diffuse right pulmonary opacities and small right pleural effusion. 2. Right basilar chest tube without evidence of a pneumothorax. Signed by: Dr. Ciro Park DO on 10/20/2018 7:26 AM
[2018-10-20] MEDS: FAMOTIDINE 20 MG TAB PO SCH ×2 (07:53→17:10)
[2018-10-20] MEDS: PANTOPRAZOLE SOD 40 MG TABEC PO SCH (07:53)
--- NOTE | 2018-10-20 09:11 | NUR ---
assisted patient to sink for sponge bath, skin care, and oral care. all linen changed. patient complained of some dizziness as he states that he has not been out of bed in days. patient sitting in chair and instructed to call before getting up. patient verbalized understanding.
--- NOTE | 2018-10-20 09:50 | NUR ---
patient assisted back to bed and medicated for pain as requested
--- NOTE | 2018-10-20 18:09 | Progress Note ---
DATE: 10/20/2018 SUBJECTIVE: The patient is resting in bed. He is alert and responsive. He is in no acute distress. He is not coughing. No dyspnea at rest. No vomiting. No diarrhea. No other systemic complaints reported. OBJECTIVE: VITAL SIGNS: Overnight, he had temperatures up to 100.7 degrees Fahrenheit. GENERAL: He is hemodynamically stable. There is no pallor. No icterus. No oropharyngeal lesions. NECK: Supple. CHEST: Symmetric. Breath sounds are decreased at the right lung base. HEART: Heart sounds are regular without significant murmur. ABDOMEN: Soft. Bowel sounds are present. EXTREMITIES: There is no acute erythema of extremities. LABORATORY DATA: His white count is 9.2, hemoglobin 10.9, and platelet count 503. There is 15% monocytosis on these differentials. His creatinine is 0.8. His AST is 43 on October 18, 109 on October 19, 100 currently. ALT 190 on October 17, 128 on October 18, 164 on October 19, and 161 currently. Alkaline phosphatase currently 153. Total bilirubin is normal. Tissue biopsy culture from on October 16 is reported negative. Bronchial washing culture is reported negative so far. AFB smear from October 16, two sputum specimens, smear is reported negative. Bronchial washing on October 16, AFB smear is reported negative. Pleural fluid culture is reported negative. Histopathology report is still not available. I was called and informed by Dr. Harry, relocation specialist that he received verbal report from Pathology that the pleural biopsy findings are consistent with caseating granuloma. IMPRESSION: He has a febrile illness without much leukocytosis, there is monocytosis. There is large right pleural effusion with lymphocytosis. He has had thoracentesis and thoracotomy. Verbal report on the pleural biopsy is reported positive with caseating granulomas. He has positive PPD, measuring 2.3 x 2.5 cm, most likely he has tuberculosis. His AFB smears from bronchoalveolar lavage and washings as well as induced sputums are so far negative. I suggest we start him on four-drug anti-TB regimen with vitamin B6, discontinue levofloxacin. I have discussed the patient with pharmacy with regard to dosing of his anti-TB medications according to weight. We will closely monitor his liver function test. If there is worsening, we will modify anti-TB treatment. Continue to follow up on the AFB cultures and the histopathology. I have discussed the findings and plans with the patient at bedside along with nursing care of the patient . MD LYNSEY Walsh/PARTH /[id number]
[2018-10-20] MEDS: RIFAMPIN 300 MG CAP PO SCH (18:11)
[2018-10-20] MEDS: ETHAMBUTOL HCL 400 MG TAB PO SCH (18:11)
[2018-10-20] MEDS: PYRAZINAMIDE 500 MG TAB PO SCH (18:12)
[2018-10-20] MEDS: ENOXAPARIN SOD INJ 40 MG/0.4 ML SYR SC SCH (18:12)
[2018-10-20] MEDS: PYRIDOXINE HCL 50 MG TAB PO SCH (18:12)
[2018-10-20] MEDS: ISONIAZID 300 MG TAB PO SCH (18:13)
--- NOTE | 2018-10-20 18:19 | Progress Note ---
DATE: 10/19/2018 SUBJECTIVE: The patient is resting quietly. He is seen in no acute distress. He is not coughing. No dyspnea at rest. No nausea, vomiting, or diarrhea. The pain at the chest tube site is less. OBJECTIVE: VITAL SIGNS: Maximum temperature in the previous 24 hours up to 99.9 degrees Fahrenheit. GENERAL: He is hemodynamically stable. HEENT: He has no gross pallor. No obvious icterus. No oropharyngeal lesions. NECK: Supple. CHEST: Symmetric. Breath sounds are decreased at the lung bases on the right. HEART: Sounds are regular without significant murmur. ABDOMEN: Full. Soft, nontender with normal bowel sounds. EXTREMITIES: No acute erythema of his extremities. LABORATORY DATA: His white count 7.4, hemoglobin 10.2, and platelet counts 490. Serum creatinine 0.6. There are, as yet, no significant positive cultures. No pathology report. IMPRESSION: He has a febrile illness without significant leukocytosis. He has a large right pleural effusion with lymphocytosis. There is monocytosis on his peripheral smear/CBC. He has had thoracentesis and right chest tube placement. His liver function test is abnormal. I suggest continue current management. We are following up on the AFB smears and pathology reports. Continue other supportive care. MD LYNSEY Walsh/MODL /[id number]
[2018-10-21] VITALS (23 sets, daily range): BP systolic 96–125; BP diastolic 62–81
[2018-10-21] MEDS: HYDROCODONE/APAP 5MG-325MG TAB PO PRN ×4 (02:15→16:16)
[2018-10-21] MEDS: MORPHINE SULFATE INJ 4 MG/ML INJ 1ML IV PRN ×5 (02:15→23:02)
[2018-10-21] MEDS: ALBUTEROL SULF 0.083% NEB SOLN 3 ML NEB NEB SCH ×5 (03:02→19:30)
[2018-10-21 05:23] LABS: BASOPHILS # (AUTO) 0.1 (0.0-0.1); BASOPHILS % 0.6 % (0.0-1.0); EOSINOPHILS # (AUTO) 0.1 (0.0-0.4); EOSINOPHILS % 1.6 % (0.0-6.0); HEMATOCRIT 32.9 % (38.2-49.6); HEMOGLOBIN 10.7 g/dL (14.0-18.0); LYMPHOCYTES # (AUTO) 1.8 (1.0-3.2); LYMPHOCYTES % 22.1 % (18.0-39.1); MEAN CORPUSCULAR HEMOGLOBIN 28.7 pg (28-32); MEAN CORPUSCULAR HGB CONC 32.5 g/dL (31-35); MEAN CORPUSCULAR VOLUME 88.2 fL (81-99); MONOCYTES # (AUTO) 1.2 (0.2-0.8); MONOCYTES % 14.9 % (4.4-11.3); NEUTROPHILS % 60.1 % (38.7-80.0); PLATELET COUNT 545 x10e3/uL (140-360); RED BLOOD COUNT 3.73 x10e6/uL (4.3-5.7); RED CELL DISTRIBUTION WIDTH 12.6 % (11.7-14.4)
[2018-10-21 05:55] LABS: ALANINE AMINOTRANSFERASE 175 IU/L (0-55); ALBUMIN 2.3 g/dL (3.5-5.0); ALBUMIN/GLOBULIN RATIO 0.4 (0.8-2.0); ALKALINE PHOSPHATASE 156 IU/L (40-150); ANION GAP 13.2 mmol/L (8-16); BLOOD UREA NITROGEN 13 mg/dL (7-26); BUN/CREATININE RATIO 16 (6-25); CALCIUM 9.4 mg/dL (8.4-10.2); CARBON DIOXIDE 27 mmol/L (22-29); CHLORIDE 98 mmol/L (98-107); CREATININE, SERUM 0.81 mg/dL (0.72-1.25); EST GLOMERULAR FILTRATION RATE > 60 ML/MIN (60-); GLUCOSE 102 mg/dL (74-118); POTASSIUM 5.2 mmol/L (3.5-5.1); SODIUM 133 mmol/L (136-145)
--- NOTE | 2018-10-21 06:25 | NUR ---
IM- progress note O/N; no events roS; no cp/leg pain/vision changes/back pain/skin rash/diarrhea/N/V. V/S: rev'd PE tired appearing anicteric ns1s2 reduced BS; fine crackles at right lung base soft nt nd no e/t a&ox3; armstrong skin dry n. affect labs/med;s rev'd A/P: 37yoM Right pleural effusion R. PNA with parapneumonic effusion Obesity BMI 31.5 Hyponatremia Transaminitis Current smoker PLAN s/p thoracentesis 2600ml removed check hepatitis panel check BNP hba1c/lipids/TSH scd/pepcid dispo: 10/10 doing better; get f/u cxr. HIV and flu neg; check MICHELLE and RF; hba1c neg. TSH normal; 10/11 d/w - appears to be loculated right pleural effusion- reaccumulated. Agree with CV surgery consult. 200cc fluid removed by 2nd thoracentesis; Pt comfortable; no resp distress. 10/12 f/u labs; chest tube this am. 10/13 s/p chest tube; f/u sx plan. RF negative; MICHELLE neg; check acute hepatitis panel. 10/14 subtherapeutic vanco; ID consult. Pt was seen by CV surgery. awaiting plan of care. 10/15 persistent right pleural effusion; chest tube in place; Thoracotomy/decortication likely. 10/16 borderline Tspot. s/p thoracotomy- pain controlled; f/u path studies; continue airborne precautions. 10/17 no malignant cells in pleural effusion; 10/18 cont care 10/19 positive PPD; pleural bx reported as having caseating granulomas, d/w ; LFTs still elevated; treatment soon. 3 reported negative AFBs per ID; hence pt is not infections. Tx per ID. 10/20 initiation of antiTB meds; HyperK- recheck at 2pm. Reginald Méndez MD, PhD.
[2018-10-21] MEDS: IPRATROPIUM BROMIDE 0.02% 2.5 ML NEB NEB SCH ×3 (07:45→19:30)
[2018-10-21] MEDS: FAMOTIDINE 20 MG TAB PO SCH ×2 (08:07→16:16)
[2018-10-21] MEDS: PYRAZINAMIDE 500 MG TAB PO SCH (08:07)
[2018-10-21] MEDS: ETHAMBUTOL HCL 400 MG TAB PO SCH (08:07)
[2018-10-21] MEDS: ISONIAZID 300 MG TAB PO SCH (08:07)
[2018-10-21] MEDS: PANTOPRAZOLE SOD 40 MG TABEC PO SCH (08:07)
[2018-10-21] MEDS: PYRIDOXINE HCL 50 MG TAB PO SCH (08:07)
[2018-10-21] MEDS: RIFAMPIN 300 MG CAP PO SCH (08:07)
--- NOTE | 2018-10-21 15:30 | Progress Note ---
DATE: 10/21/2018 SUBJECTIVE: The patient is resting quietly. He says he feels dizzy sometimes. No nausea or vomiting. No headache. No diarrhea. No genitourinary complaints. No pruritus or rash. OBJECTIVE: VITAL SIGNS: Maximum temperature in the past 24 hours up to 100.2 degrees Fahrenheit. Most recent temperature 98.6. GENERAL: He is hemodynamically stable. There is no gross pallor. No obvious icterus. No oropharyngeal lesions. NECK: Supple. CHEST: Symmetric. The right chest tube is in place. Breath sounds are decreased at the right lung base. HEART: Sounds are regular. There is no new murmur. ABDOMEN: Soft. Bowel sounds are present. EXTREMITIES: No acute erythema of his extremities. LABORATORY DATA: His white count is 8.2, hemoglobin 10.7, and platelet count 545. His serum creatinine is 0.8. His AST has increased from 43 on October 18 to 116 currently. ALT increased from 128 to 175. Alkaline phosphatase increased from 107 to 156. Total bilirubin has increased to 1.4. His AFB smear from the bronchoscopy are all negative. AFB cultures are pending. Histopathology report is not yet available. IMPRESSION: We have started him on a four drug regimen for tuberculosis. His liver function test is on an upward trend. He still has low-grade temperatures. Verbal report on the pathology from his thoracotomy biopsy is reported possibly for caseating granulomas. His PPD test is positive measuring 2.3 x 2.5 cm. I suggest we continue current treatment. If there is further increase in his liver function test we will consider modifying his anti-TB regimen. I have discussed the patient with Dr. Harry. I discussed the patient yesterday with the primary physician Dr. Méndez. MD LYNSEY Walsh/PARTH /[id number]
[2018-10-21] MEDS: ENOXAPARIN SOD INJ 40 MG/0.4 ML SYR SC SCH (16:16)
--- NOTE | 2018-10-21 19:00 | NUR ---
Report received. Assumed care. Assessment done. See interventions. CT to 20cm suction with no air leak detected.
--- NOTE | 2018-10-21 23:04 | NUR ---
Medicated for c/o pain.
[2018-10-22] VITALS (21 sets, daily range): BP systolic 104–126; BP diastolic 69–83
[2018-10-22] MEDS: IPRATROPIUM BROMIDE 0.02% 2.5 ML NEB NEB SCH ×4 (00:30→19:45)
[2018-10-22] MEDS: ALBUTEROL SULF 0.083% NEB SOLN 3 ML NEB NEB SCH ×6 (00:30→19:45)
[2018-10-22 05:10] LABS: BASOPHILS # (AUTO) 0.1 (0.0-0.1); BASOPHILS % 0.8 % (0.0-1.0); EOSINOPHILS # (AUTO) 0.2 (0.0-0.4); EOSINOPHILS % 2.2 % (0.0-6.0); HEMATOCRIT 32.4 % (38.2-49.6); HEMOGLOBIN 10.4 g/dL (14.0-18.0); LYMPHOCYTES # (AUTO) 1.9 (1.0-3.2); LYMPHOCYTES % 24.5 % (18.0-39.1); MEAN CORPUSCULAR HEMOGLOBIN 28.4 pg (28-32); MEAN CORPUSCULAR HGB CONC 32.1 g/dL (31-35); MEAN CORPUSCULAR VOLUME 88.5 fL (81-99); MONOCYTES # (AUTO) 1.3 (0.2-0.8); NEUTROPHILS # (AUTO) 4.4 (2.1-6.9); NEUTROPHILS % 55.7 % (38.7-80.0); PLATELET COUNT 581 x10e3/uL (140-360); RED BLOOD COUNT 3.66 x10e6/uL (4.3-5.7); RED CELL DISTRIBUTION WIDTH 12.7 % (11.7-14.4)
[2018-10-22 05:34] LABS: ALANINE AMINOTRANSFERASE 174 IU/L (0-55); ALBUMIN 2.3 g/dL (3.5-5.0); ALBUMIN/GLOBULIN RATIO 0.4 (0.8-2.0); ALKALINE PHOSPHATASE 150 IU/L (40-150); ANION GAP 14.2 mmol/L (8-16); BLOOD UREA NITROGEN 12 mg/dL (7-26); BUN/CREATININE RATIO 15 (6-25); CALCIUM 9.2 mg/dL (8.4-10.2); CARBON DIOXIDE 25 mmol/L (22-29); CHLORIDE 99 mmol/L (98-107); CREATININE, SERUM 0.78 mg/dL (0.72-1.25); EST GLOMERULAR FILTRATION RATE > 60 ML/MIN (60-); GLUCOSE 97 mg/dL (74-118); POTASSIUM 4.2 mmol/L (3.5-5.1); SODIUM 134 mmol/L (136-145)
[2018-10-22 05:53] LABS: ALBUMIN 2.3 g/dL (3.5-5.0); BILIRUBIN,DIRECT 0.8 mg/dL (0.0-0.5)
[2018-10-22] MEDS: MORPHINE SULFATE INJ 4 MG/ML INJ 1ML IV PRN ×3 (06:14→18:29)
--- NOTE | 2018-10-22 06:17 | NUR ---
Medicated for c/o pain at chest tube site.
--- NOTE | 2018-10-22 06:24 | NUR ---
IM- progress note O/N; no events roS; no cp/leg pain/vision changes/back pain/skin rash/diarrhea/N/V. V/S: rev'd PE tired appearing anicteric ns1s2 reduced BS; fine crackles at right lung base soft nt nd no e/t a&ox3; armstrong skin dry n. affect labs/med;s rev'd A/P: 37yoM Right pleural effusion R. PNA with parapneumonic effusion Obesity BMI 31.5 Hyponatremia Transaminitis Current smoker PLAN s/p thoracentesis 2600ml removed check hepatitis panel check BNP hba1c/lipids/TSH scd/pepcid dispo: 10/10 doing better; get f/u cxr. HIV and flu neg; check MICHELLE and RF; hba1c neg. TSH normal; 10/11 d/w - appears to be loculated right pleural effusion- reaccumulated. Agree with CV surgery consult. 200cc fluid removed by 2nd thoracentesis; Pt comfortable; no resp distress. 10/12 f/u labs; chest tube this am. 10/13 s/p chest tube; f/u sx plan. RF negative; MICHELLE neg; check acute hepatitis panel. 10/14 subtherapeutic vanco; ID consult. Pt was seen by CV surgery. awaiting plan of care. 10/15 persistent right pleural effusion; chest tube in place; Thoracotomy/decortication likely. 10/16 borderline Tspot. s/p thoracotomy- pain controlled; f/u path studies; continue airborne precautions. 10/17 no malignant cells in pleural effusion; 10/18 cont care 10/19 positive PPD; pleural bx reported as having caseating granulomas, d/w ; LFTs still elevated; treatment soon. 3 reported negative AFBs per ID; hence pt is not infections. Tx per ID. 10/20 initiation of antiTB meds; HyperK- recheck at 2pm. 10/21 cont care 10/22 LFT remain elevated, but stable on TB tx. Reginald Méndez MD, PhD.
[2018-10-22] MEDS: FAMOTIDINE 20 MG TAB PO SCH ×2 (08:16→18:28)
[2018-10-22] MEDS: PANTOPRAZOLE SOD 40 MG TABEC PO SCH (08:16)
[2018-10-22] MEDS: PYRAZINAMIDE 500 MG TAB PO SCH (08:17)
[2018-10-22] MEDS: PYRIDOXINE HCL 50 MG TAB PO SCH (08:17)
[2018-10-22] MEDS: RIFAMPIN 300 MG CAP PO SCH (08:17)
[2018-10-22] MEDS: ETHAMBUTOL HCL 400 MG TAB PO SCH (08:17)
[2018-10-22] MEDS: ISONIAZID 300 MG TAB PO SCH (08:17)
--- NOTE | 2018-10-22 11:44 | NUR ---
Nutrition Screen Note RD Recommendation for Physician: - Continue current diet as ordered Plan of Care: RD following, monitoring for tolerance and adequacy Nutrition reason for involvement: Follow up Primary Diagnose(s): Right pleural effusion, PNA PMH: None per chart Ht: 65in Wt: 178lb (10/22) BMI: 29.6kg/m2 IBW: 136lb RD Assessment: (10/22) Follow up encounter with pt. Spoke to patient's nurse. Pt is eating well with no nausea, vomiting or diarrhea. No chewing or swallowing difficulty with a regular consistency diet. (10/15) Chart reviewed. Labs and meds reviewed. 37yo M, who was admitted for dyspnea and fever. Visited pt in the room. Pt reported good appetite without any GI issue. No complains of chewing or swallowing difficulty. No recent weight loss reported. Will continue to monitor and follow. Current Diet: regular diet Malnutrition Evaluation (10/15) The patient does not meet criteria for a specified degree of malnutrition at this time. Will re-evaluate at follow-up as appropriate. Diet Education Needs Assessment: Diet education not indicated. Nutrition Care Level: kevin Nelson RD, LD, [facility]
--- NOTE | 2018-10-22 16:10 | Progress Note ---
DATE: 10/22/2018 SUBJECTIVE: The patient is resting in bed. He is in no acute distress. He feels dizzy. He is not coughing. No dyspnea at rest. No report of vomiting or diarrhea. No other systemic complaints reported. OBJECTIVE: VITAL SIGNS: His most recent temperature was 99.2 degrees Fahrenheit. He is hemodynamically stable. He has no gross pallor. No obvious icterus. No oropharyngeal lesions. NECK: Supple. CHEST: Symmetric. Breath sounds are decreased at the right lung base. HEART: Sounds are regular without new murmur. ABDOMEN: Soft. Bowel sounds are present. EXTREMITIES: No acute erythema of his extremities. LABORATORY DATA: A right chest tube is in place. The computer system is down. New lab reports are not available. IMPRESSION: We have started him on anti-TB therapy. He has a febrile illness with right pleural effusion with lymphocytosis on the pleural effusion analysis. He had thoracotomy with pleural biopsy. Pleural biopsy showed caseating granulomas. His PPD is positive, measured 2.3 x 2.5 cm. His liver function test is abnormal. I suggest, plan is to continue treatment for now. If his liver function test continues to worsen we may need to modify his anti-TB regimen. He is HIV negative. His AFB smears have been negative. Cultures are pending. I discussed the findings and treatment of the patient as well as with the ICU staff. MD LYNSEY Walsh/MODL /[id number]
--- NOTE | 2018-10-22 17:24 | Diagnostic Imaging Report ---
Examination: Single AP view of the chest. COMPARISON: October 20, 2018 INDICATION: Pleural effusion DISCUSSION: Lines/tubes: None. Lungs: Stable right midlung and lower lung opacity. Pleura: Stable loculated right effusion. Heart and mediastinum: The heart and the mediastinum are unremarkable. Bones and soft tissues: No acute bony abnormalities. IMPRESSION: Stable right mid and lower lung opacities with loculated pleural effusion Signed by: Dr. Enzo Tucker M.D. on 10/22/2018 5:21 PM
[2018-10-22] MEDS: ENOXAPARIN SOD INJ 40 MG/0.4 ML SYR SC SCH (18:28)
[2018-10-22] MEDS: ONDANSETRON HCL 4 MG ORAL DISINTEGRATING TAB PO PRN (20:37)
[2018-10-23] VITALS (7 sets, daily range): BP systolic 105–130; BP diastolic 60–77
[2018-10-23] MEDS: MORPHINE SULFATE INJ 4 MG/ML INJ 1ML IV PRN ×3 (00:21→11:42)
[2018-10-23] MEDS: IPRATROPIUM BROMIDE 0.02% 2.5 ML NEB NEB SCH ×5 (00:45→23:20)
[2018-10-23] MEDS: ALBUTEROL SULF 0.083% NEB SOLN 3 ML NEB NEB SCH ×8 (00:45→23:00)
[2018-10-23 06:19] LABS: BASOPHILS # (AUTO) 0.1 (0.0-0.1); BASOPHILS % 0.6 % (0.0-1.0); EOSINOPHILS # (AUTO) 0.2 (0.0-0.4); EOSINOPHILS % 2.3 % (0.0-6.0); HEMATOCRIT 33.8 % (38.2-49.6); HEMOGLOBIN 10.8 g/dL (14.0-18.0); LYMPHOCYTES # (AUTO) 3.1 (1.0-3.2); LYMPHOCYTES % 31.7 % (18.0-39.1); MEAN CORPUSCULAR HEMOGLOBIN 28.3 pg (28-32); MEAN CORPUSCULAR VOLUME 88.7 fL (81-99); MONOCYTES # (AUTO) 1.5 (0.2-0.8); MONOCYTES % 15.4 % (4.4-11.3); NEUTROPHILS # (AUTO) 4.8 (2.1-6.9); NEUTROPHILS % 49.2 % (38.7-80.0); PLATELET COUNT 592 x10e3/uL (140-360); RED BLOOD COUNT 3.81 x10e6/uL (4.3-5.7); RED CELL DISTRIBUTION WIDTH 12.8 % (11.7-14.4)
[2018-10-23 06:37] LABS: ALANINE AMINOTRANSFERASE 154 IU/L (0-55); ALBUMIN 2.4 g/dL (3.5-5.0); ALKALINE PHOSPHATASE 133 IU/L (40-150); ANION GAP 17.4 mmol/L (8-16); BILIRUBIN,DIRECT 0.6 mg/dL (0.0-0.5); BLOOD UREA NITROGEN 12 mg/dL (7-26); BUN/CREATININE RATIO 14 (6-25); CALCIUM 9.2 mg/dL (8.4-10.2); CARBON DIOXIDE 25 mmol/L (22-29); CHLORIDE 104 mmol/L (98-107); CREATININE, SERUM 0.86 mg/dL (0.72-1.25); EST GLOMERULAR FILTRATION RATE > 60 ML/MIN (60-); GLUCOSE 100 mg/dL (74-118); POTASSIUM 4.4 mmol/L (3.5-5.1); SODIUM 142 mmol/L (136-145)
[2018-10-23] MEDS: PANTOPRAZOLE SOD 40 MG TABEC PO SCH (07:49)
[2018-10-23] MEDS: FAMOTIDINE 20 MG TAB PO SCH ×2 (07:49→16:30)
[2018-10-23] MEDS: ETHAMBUTOL HCL 400 MG TAB PO SCH (09:08)
[2018-10-23] MEDS: RIFAMPIN 300 MG CAP PO SCH (09:08)
[2018-10-23] MEDS: ISONIAZID 300 MG TAB PO SCH (09:08)
[2018-10-23] MEDS: PYRIDOXINE HCL 50 MG TAB PO SCH (09:08)
[2018-10-23] MEDS: PYRAZINAMIDE 500 MG TAB PO SCH (09:08)
[2018-10-23] MEDS: HYDROCODONE/APAP 5MG-325MG TAB PO PRN (11:42)
--- NOTE | 2018-10-23 12:11 | NUR ---
RCD PT FROM ICU BY BED PT IS ALERT AND ORIENTED VITALS CHECKED PT RESTING ON BED BED LOW AND LOCKED CALL LIGHT IN REACH
--- NOTE | 2018-10-23 13:48 | NUR ---
DC PLAN: HERNAN DISCUSSED PT DISPO TODAY. KORIN GONSALEZ INQUIRED IF PT WAS ABLE TO TRANSITION BACK TO THE SHIP OR DC TO A HOTEL. INFORMED PRISCILLA [facility] CONTR[facility] STATED THE PT WOULD NEED FINAL CULTURES BEFORE DISCHARGING. [facility]INE CONTACTED [facility]. F/U W [facility]ISCILLA POST MDR. STATES THE PT WILL NEED 2 MORE AFB CULT 8HRS APART PER THE CDC. WILL CONT TO FOLLOW.
[2018-10-23] MEDS: ENOXAPARIN SOD INJ 40 MG/0.4 ML SYR SC SCH (17:00)
[2018-10-23] MEDS: ACETAMINOPHEN 325 MG TAB PO PRN (17:04)
--- NOTE | 2018-10-23 18:48 | NUR ---
PT RESTING ON BED BED SIDE REPORT GIVEN TO ONCOMING NURSE
--- NOTE | 2018-10-23 19:41 | NUR ---
Received report from AM nurse. Walking rounds completed. Patient c/o side pain. Will F/U.
[2018-10-23] MEDS: KETOROLAC TROMETHAMINE 30 MG/ML VIAL IV PRN (19:57)
[2018-10-24] VITALS (7 sets, daily range): BP systolic 102–142; BP diastolic 69–84
--- NOTE | 2018-10-24 | NUR ---
Patient AAOx3. IV intact to left FA 22G. Dressing intact to left side chest/abdomin. Patient c/o pain given pain meds as ordered by MD.Sputum sample is still due. Encourage patient to cough deep.
[2018-10-24] MEDS: KETOROLAC TROMETHAMINE 30 MG/ML VIAL IV PRN ×4 (02:01→22:18)
[2018-10-24] MEDS: ALBUTEROL SULF 0.083% NEB SOLN 3 ML NEB NEB SCH ×6 (03:15→23:20)
--- NOTE | 2018-10-24 04:18 | NUR ---
Patient received additional pain meds as ordered by MD. Patient resting in bed.
--- NOTE | 2018-10-24 07:00 | NUR ---
SHIFT REPORT RECEIVED FROM NIGHT RN AT BEDSIDE. PT DENIES NEEDS AT THIS TIME.
[2018-10-24] MEDS: IPRATROPIUM BROMIDE 0.02% 2.5 ML NEB NEB SCH ×3 (07:02→19:50)
[2018-10-24] MEDS: FAMOTIDINE 20 MG TAB PO SCH ×2 (09:00→16:20)
[2018-10-24] MEDS: ISONIAZID 300 MG TAB PO SCH (09:01)
[2018-10-24] MEDS: PANTOPRAZOLE SOD 40 MG TABEC PO SCH (09:01)
[2018-10-24] MEDS: RIFAMPIN 300 MG CAP PO SCH (09:02)
[2018-10-24] MEDS: PYRIDOXINE HCL 50 MG TAB PO SCH (09:02)
[2018-10-24] MEDS: ETHAMBUTOL HCL 400 MG TAB PO SCH (09:02)
[2018-10-24] MEDS: PYRAZINAMIDE 500 MG TAB PO SCH (09:03)
--- NOTE | 2018-10-24 10:00 | NUR ---
IM- progress note O/N; no events roS; no cp/leg pain/vision changes/back pain/skin rash/diarrhea/N/V. V/S: rev'd PE tired appearing anicteric ns1s2 reduced BS; fine crackles at right lung base soft nt nd no e/t a&ox3; armstrong skin dry n. affect labs/med;s rev'd A/P: 37yoM Right pleural effusion R. PNA with parapneumonic effusion Obesity BMI 31.5 Hyponatremia Transaminitis Current smoker PLAN s/p thoracentesis 2600ml removed check hepatitis panel check BNP hba1c/lipids/TSH scd/pepcid dispo: 10/10 doing better; get f/u cxr. HIV and flu neg; check MICHELLE and RF; hba1c neg. TSH normal; 10/11 d/w - appears to be loculated right pleural effusion- reaccumulated. Agree with CV surgery consult. 200cc fluid removed by 2nd thoracentesis; Pt comfortable; no resp distress. 10/12 f/u labs; chest tube this am. 10/13 s/p chest tube; f/u sx plan. RF negative; MICHELLE neg; check acute hepatitis panel. 10/14 subtherapeutic vanco; ID consult. Pt was seen by CV surgery. awaiting plan of care. 10/15 persistent right pleural effusion; chest tube in place; Thoracotomy/decortication likely. 10/16 borderline Tspot. s/p thoracotomy- pain controlled; f/u path studies; continue airborne precautions. 10/17 no malignant cells in pleural effusion; 10/18 cont care 10/19 positive PPD; pleural bx reported as having caseating granulomas, d/w ; LFTs still elevated; treatment soon. 3 reported negative AFBs per ID; hence pt is not infections. Tx per ID. 10/20 initiation of antiTB meds; HyperK- recheck at 2pm. 10/21 cont care 10/22 LFT remain elevated, but stable on TB tx. 10/23 s/p chest tube removal; f/u additional AFBs; d/c planning; 10/24 f/u AFBs Reginald Méndez MD, PhD.
[2018-10-24] MEDS: ACETAMINOPHEN 325 MG TAB PO PRN ×2 (14:20→20:38)
--- NOTE | 2018-10-24 14:41 | Progress Note ---
DATE: 10/24/2018 SUBJECTIVE: The patient is afebrile. He feels better overall. PHYSICAL EXAMINATION: VITAL SIGNS: The patient's vital signs are stable. HEENT: Shows no facial swelling or erythema. CARDIAC: Reveals a regular rate and rhythm with a normal S1 and S2. LUNGS: Auscultation of lungs reveals clear breath sounds bilaterally. There is no wheezing. ABDOMEN: Soft, nontender. There is no rebound or guarding. EXTREMITIES: Show no leg edema. PATHOLOGY REPORT: The official pathology report shows granulomatous inflammation with no visible organisms on AFB or GMS stain. The pathologist felt the histopathology was suggestive of rheumatoid arthritis or another noninfectious inflammatory etiology. IMPRESSION: 1. Pneumonia with parapneumonic effusion. 2. Possible pleural tuberculosis. PLAN: 1. Tuberculosis has not been confirmed by sputum samples nor by pathology. 2. The patient should have a PCR sent for mycobacterium tuberculosis to definitely diagnosis or exclude MTB. 3. Fungal serologies were sent. 4. Continue current treatment until mycobacterium tuberculosis can definitely be excluded. Espinoza Harry MD [facility]/MODL /[id number]
--- NOTE | 2018-10-24 16:16 | Progress Note ---
DATE: 10/23/2018 SUBJECTIVE: The patient is resting quietly. He is in no acute distress. He is not coughing. No dyspnea. No complaint of chest or abdominal pain. No nausea, vomiting, or diarrhea. No other systemic complaints reported. OBJECTIVE: VITAL SIGNS: In the previous 24-hours, he had temperatures up to 99.5 degrees Fahrenheit. GENERAL: He is hemodynamically stable. He has no gross pallor. No obvious icterus. No oropharyngeal lesions. NECK: Supple. CHEST: Symmetric. Breath sounds are decreased at the right lung base. HEART: Sounds are regular without any murmur. ABDOMEN: Soft and nontender. Bowel sounds are normal. EXTREMITIES: There is no acute erythema of his extremities. LABORATORY DATA: His white count is 9.6, hemoglobin 10.8, platelet count 592. His serum creatinine is 0.8. His AST is down to 88, ALT is down to 154, alkaline phosphatase is normal, total bilirubin is normal, serum total protein 8.3, albumin 2.4. Histopathology report on the pleural biopsy is somewhat equivocal/contradicting. IMPRESSION AND PLAN: We have him on empiric treatment for tuberculosis. He has positive PPD measuring 2.3 x 2.5 cm. He had a febrile illness with a large right pleural effusion with lymphocytosis. He is HIV negative. Pleural fluid showed no malignancy. Pleural tissue biopsy is negative for AFB, negative for PAS, silver stain is also negative, that was initial verbal report that there were caseating granulomas on the pleural biopsy. It turns out that this cannot be confirmed. I suggest in light of the positive PPD in a patient from the [facility] where tuberculosis is relatively common, we should continue anti-TB therapy. The patient's liver function test is improving. His temperatures are also much less than before. We should contact Pathology to see if there is any remaining specimen to be re-examined of both the pleural fluid and the pleural tissue. I have discussed the patient with Dr. Harry as well as with DR. Méndez. MD LYNSEY Walsh/MODL /[id number]
--- NOTE | 2018-10-24 16:27 | Progress Note ---
DATE: 10/24/2018 SUBJECTIVE: The patient is resting in bed. He is not coughing. There is no dyspnea at rest. No complaint of chest pain. No nausea, vomiting, or diarrhea. No fevers or sweats. No other systemic complaints reported. OBJECTIVE: VITAL SIGNS: In the past 24 hours, he had temperatures up to 99.4 degrees Fahrenheit. GENERAL: He is hemodynamically stable. He has no pallor. HEENT: There is no icterus. No oropharyngeal lesions. NECK: Supple. CHEST: Symmetric. The right chest tube has been removed. Breath sounds are decreased at the right lung base. HEART: Sounds are regular. There is no new murmur. ABDOMEN: Soft. Nontender. Bowel sounds are present. EXTREMITIES: There is no acute erythema of his extremities. LABORATORY DATA: His creatinine is 0.8. His AST is down to 88, ALT is down to 154, alkaline phosphatase is now normal. Total bilirubin is now normal. MICHELLE screen was negative on October 10. HIV test was negative from October 09. The viral hepatitis profile was negative on October 13. Bronchoscopy AFB smear reports have been negative. Cultures are pending. Fungal smears were also negative, cultures are pending. Pathology report on his pleural biopsy has been reviewed. Chest x-ray from October 22 showed stable right mid and lower lung opacities with loculated pleural effusion. IMPRESSION: We have him on anti-tuberculosis therapy. He has positive PPD measuring 2.3 x 2.5 cm. He had afebrile illness with right pleural effusion. Pleural fluid analysis showed lymphocytosis. Cultures have been negative. AFB smear is negative. Pleural biopsy pathology report is equivocal. The patient's temperatures are much lower. His liver function test is also much improved. I suggest we continue anti-tuberculosis therapy. I have discussed the patient with the liaison for [employer]. He has been told by [facility] that the patient needs 3 negative AFB smears 8 hours apart in order for him to safely travel back to the [facility]. We have ordered the AFB smears. Continue to monitor his temperature, CBC, renal function, as well as liver function tests. I have discussed the patient with pulmonary service as well as with the primary physician. Santhosh Valerio MD [facility]/MODL /[id number]
[2018-10-25] VITALS (7 sets, daily range): BP systolic 118–136; BP diastolic 68–79
[2018-10-25] MEDS: ALBUTEROL SULF 0.083% NEB SOLN 3 ML NEB NEB SCH ×5 (02:50→20:30)
[2018-10-25] MEDS: IPRATROPIUM BROMIDE 0.02% 2.5 ML NEB NEB SCH ×4 (02:50→20:30)
[2018-10-25] MEDS: KETOROLAC TROMETHAMINE 30 MG/ML VIAL IV PRN ×5 (04:14→22:14)
[2018-10-25 06:49] LABS: HEMATOCRIT 33.1 % (38.2-49.6); HEMOGLOBIN 10.7 g/dL (14.0-18.0); MEAN CORPUSCULAR HEMOGLOBIN 28.4 pg (28-32); MEAN CORPUSCULAR HGB CONC 32.3 g/dL (31-35); MEAN CORPUSCULAR VOLUME 87.8 fL (81-99); PLATELET COUNT 568 x10e3/uL (140-360); RED BLOOD COUNT 3.77 x10e6/uL (4.3-5.7); RED CELL DISTRIBUTION WIDTH 12.9 % (11.7-14.4)
--- NOTE | 2018-10-25 07:00 | NUR ---
SHIFT REPORT RECEIVED FROM DEBONER RN AT BEDSIDE. PT DENIES NEEDS AT THIS TIME.
[2018-10-25 07:06] LABS: ANION GAP 13.8 mmol/L (8-16); BLOOD UREA NITROGEN 16 mg/dL (7-26); BUN/CREATININE RATIO 20 (6-25); CALCIUM 9.4 mg/dL (8.4-10.2); CARBON DIOXIDE 22 mmol/L (22-29); CHLORIDE 103 mmol/L (98-107); CREATININE, SERUM 0.82 mg/dL (0.72-1.25); EST GLOMERULAR FILTRATION RATE > 60 ML/MIN (60-); GLUCOSE 156 mg/dL (74-118); POTASSIUM 3.8 mmol/L (3.5-5.1); SODIUM 135 mmol/L (136-145)
[2018-10-25 07:08] LABS: ALBUMIN 2.5 g/dL (3.5-5.0); BILIRUBIN,DIRECT 0.4 mg/dL (0.0-0.5)
[2018-10-25] MEDS: ISONIAZID 300 MG TAB PO SCH (08:17)
[2018-10-25] MEDS: PYRIDOXINE HCL 50 MG TAB PO SCH (08:17)
[2018-10-25] MEDS: FAMOTIDINE 20 MG TAB PO SCH ×2 (08:17→16:12)
[2018-10-25] MEDS: ETHAMBUTOL HCL 400 MG TAB PO SCH (08:17)
[2018-10-25] MEDS: RIFAMPIN 300 MG CAP PO SCH (08:17)
[2018-10-25] MEDS: PYRAZINAMIDE 500 MG TAB PO SCH (08:17)
[2018-10-25] MEDS: PANTOPRAZOLE SOD 40 MG TABEC PO SCH (08:17)
--- NOTE | 2018-10-25 11:09 | Progress Note ---
DATE: 10/25/2018 SUBJECTIVE: The patient feels better. He has no fever. He was walking yesterday. PHYSICAL EXAMINATION: VITAL SIGNS: The patient is afebrile. Vital signs are stable. HEENT: No facial swelling or erythema. Nasal mucosa is normal. LYMPHATIC: No submandibular, cervical, or supraclavicular adenopathy. CARDIAC: Regular rate and rhythm with normal S1 and S2. There are no murmurs or rubs. LUNGS: Auscultation of lungs reveals decreased breath sounds at the bases. ABDOMEN: Soft and nontender. IMPRESSION: 1. Pneumonia with parapneumonic effusion. 2. Possible pleural tuberculosis. PLAN: 1. Tuberculosis has not been confirmed by pathology or by microbiological testing. 2. The patient should have pleural fluid sent for flow cytometry to definitely exclude the possibility of lymphoma. 3. The patient should have a PCR sent for mycobacterium tuberculosis. 4. Fungal serologies are pending. 5. Continue treatment for mycobacterium tuberculosis until the diagnosis can be either excluded or confirmed. Espinoza Harry MD [facility]/MODL /[id number]
--- NOTE | 2018-10-25 11:17 | NUR ---
REMOVED DRESSING FROM RT CHEST TUBE SITE AND, REPLACED WITH BANDAGE DRESSING. PT TOLERATED WELL. PT DENIED NEEDS AT THIS TIME.
--- NOTE | 2018-10-25 17:11 | Progress Note ---
DATE: 10/25/2018 SUBJECTIVE: . He is not coughing much. No dyspnea at rest. No vomiting. No diarrhea. No overt medication reaction reported. OBJECTIVE: VITAL SIGNS: In the past 24 hours, his maximum temperature was 98.9 degrees Fahrenheit. GENERAL: He is hemodynamically stable. He has no gross pallor. No obvious icterus. No oropharyngeal lesions. NECK: Supple. CHEST: Symmetric. Breath sounds are decreased at the right lung base. HEART: Sounds are regular without any significant murmur. ABDOMEN: Soft and nontender. Bowel sounds are normal. EXTREMITIES: There is no acute erythema of extremities. LABORATORY DATA: His creatinine is 0.8. His AST is down to 45 from 88. His ALT is down to 105 from 154, alkaline phosphatase is normal, total bilirubin is normal. His white count is 7.8, hemoglobin 10.7, platelet count 568. There are no significant positive cultures. IMPRESSION: He has defervesced. His liver function test is improving. He is on empiric treatment for pulmonary tuberculosis. He had large right pleural effusion with lymphocytosis. Cultures are negative. Pleural biopsies pathology report is equivocal. He had a positive PPD measuring 2.3 x 2.5 cm. I suggest, continue current management, monitor temperature, CBC, and renal function. Followup on his AFB smears and cultures. Continue to monitor clinical response to treatment. MD LYNSEY Walsh/MODL /[id number]
--- NOTE | 2018-10-25 19:00 | NUR ---
BEDSIDE REPORT GIVEN TO REMOTE ENCODING OPERATIONS SUPERVISOR RN
[2018-10-25] MEDS: ONDANSETRON HCL 4 MG ORAL DISINTEGRATING TAB PO PRN (22:14)
[2018-10-26] VITALS (7 sets, daily range): BP systolic 119–140; BP diastolic 65–82
[2018-10-26] MEDS: ALBUTEROL SULF 0.083% NEB SOLN 3 ML NEB NEB SCH ×6 (01:00→20:00)
[2018-10-26] MEDS: IPRATROPIUM BROMIDE 0.02% 2.5 ML NEB NEB SCH ×4 (01:00→20:00)
[2018-10-26] MEDS: KETOROLAC TROMETHAMINE 30 MG/ML VIAL IV PRN ×3 (04:59→17:55)
[2018-10-26 05:01] LABS: HEMATOCRIT 32.7 % (38.2-49.6); HEMOGLOBIN 10.7 g/dL (14.0-18.0); MEAN CORPUSCULAR HEMOGLOBIN 28.8 pg (28-32); MEAN CORPUSCULAR HGB CONC 32.7 g/dL (31-35); MEAN CORPUSCULAR VOLUME 88.1 fL (81-99); PLATELET COUNT 553 x10e3/uL (140-360); RED BLOOD COUNT 3.71 x10e6/uL (4.3-5.7)
[2018-10-26 05:27] LABS: ALBUMIN 2.5 g/dL (3.5-5.0); BILIRUBIN,DIRECT 0.4 mg/dL (0.0-0.5)
--- NOTE | 2018-10-26 07:50 | NUR ---
Patient sitting up in bed, Alert with no distress, call light in reach
[2018-10-26] MEDS: PANTOPRAZOLE SOD 40 MG TABEC PO SCH (08:12)
[2018-10-26] MEDS: ISONIAZID 300 MG TAB PO SCH (08:12)
[2018-10-26] MEDS: FAMOTIDINE 20 MG TAB PO SCH ×2 (08:12→16:10)
[2018-10-26] MEDS: ETHAMBUTOL HCL 400 MG TAB PO SCH (08:16)
[2018-10-26] MEDS: PYRIDOXINE HCL 50 MG TAB PO SCH (08:16)
[2018-10-26] MEDS: PYRAZINAMIDE 500 MG TAB PO SCH (08:16)
[2018-10-26] MEDS: RIFAMPIN 300 MG CAP PO SCH (08:16)
--- NOTE | 2018-10-26 18:10 | NUR ---
patient resting in bed, Dressing on rt chest is intact, denies any SOB, Not in any distress, call light in reach
--- NOTE | 2018-10-26 19:00 | NUR ---
Completed bedside report with morning nurse. Pt alert to name. Lying supine in bed HOB 30 degrees. Drsg to right side dry and intact. Denies pain at this time. Bed low and locked. Call heredia within reach. Will continue to monitor.
--- NOTE | 2018-10-26 21:27 | Progress Note ---
DATE: 10/26/2018 SUBJECTIVE: The patient is alert and responsive. He is not coughing. No dyspnea at rest. No vomiting. No diarrhea. No adverse medication reaction reported. OBJECTIVE: VITAL SIGNS: Maximum temperature in the past 24 hours up to 99.4 degrees Fahrenheit. GENERAL: He is hemodynamically stable. HEENT: He has no pallor. There is no icterus. No oropharyngeal lesions. NECK: Supple. CHEST: Symmetric. Breath sounds are decreased at the right lung base. HEART: Sounds are regular. There is no new murmur. ABDOMEN: Soft. Bowel sounds are present. EXTREMITIES: No acute erythema of his extremities. LABORATORY DATA: His white count is 7.5, hemoglobin 10.7, and platelet count 553. His serum creatinine is 0.8. His AST increased to 53 from 45. ALT decreased to 99 from 105. Alkaline phosphatase is down to 118. Total bilirubin is normal. Sputum, AFB smear from October 24 and are pending. IMPRESSION: He is on treatment for tuberculosis associated with lymphocytic right pleural effusion. He has had thoracentesis and thoracotomy with pleural biopsy. All specimens have been negative. Pathology on the pleural biopsy report is equivocal. He had a positive PPD measuring 2.3 x 2.5 cm. I suggest, he on anti-TB therapy. His liver function test is slowly improving. I suggest continue current management. Followup on AFB cultures. Monitor temperature, CBC, and renal function. Continue to monitor clinical response to treatment. MD LYNSEY Walsh/PARTH /[id number]
[2018-10-26] MEDS: ACETAMINOPHEN 325 MG TAB PO PRN (23:00)
[2018-10-27] VITALS (7 sets, daily range): BP systolic 92–121; BP diastolic 57–74
[2018-10-27] MEDS: IPRATROPIUM BROMIDE 0.02% 2.5 ML NEB NEB SCH ×4 (00:45→19:30)
[2018-10-27] MEDS: ALBUTEROL SULF 0.083% NEB SOLN 3 ML NEB NEB SCH ×7 (00:45→19:30)
[2018-10-27 06:23] LABS: ALBUMIN 2.5 g/dL (3.5-5.0); BILIRUBIN,DIRECT 0.4 mg/dL (0.0-0.5)
[2018-10-27] MEDS: PANTOPRAZOLE SOD 40 MG TABEC PO SCH (08:16)
[2018-10-27] MEDS: FAMOTIDINE 20 MG TAB PO SCH ×2 (08:20→16:41)
[2018-10-27] MEDS: ETHAMBUTOL HCL 400 MG TAB PO SCH (08:41)
[2018-10-27] MEDS: ISONIAZID 300 MG TAB PO SCH (08:41)
[2018-10-27] MEDS: PYRAZINAMIDE 500 MG TAB PO SCH (08:41)
[2018-10-27] MEDS: RIFAMPIN 300 MG CAP PO SCH (08:41)
[2018-10-27] MEDS: PYRIDOXINE HCL 50 MG TAB PO SCH (08:41)
[2018-10-27] MEDS: KETOROLAC TROMETHAMINE 30 MG/ML VIAL IV PRN (14:22)
--- NOTE | 2018-10-27 16:21 | Progress Note ---
DATE: 10/27/2018 PROGRESS NOTE SUBJECTIVE: The patient is resting comfortably in bed. He is not coughing. No dyspnea at rest. No nausea, vomiting, or diarrhea. No adverse medication reaction reported. OBJECTIVE: VITAL SIGNS: In the past 4 hours he had temperature up to 99.3 degrees Fahrenheit. He is hemodynamically stable. HEENT: He has no gross pallor, no obvious icterus, no oropharyngeal lesions. NECK: Supple. CHEST: Symmetric. LUNGS: Clear. HEART: Sounds are regular without significant murmur. ABDOMEN: Full, soft, nontender, normal bowel sounds. EXTREMITIES: No acute erythema of his extremities. LABORATORY DATA: His creatinine is 0.8 on October 25, 2018. His liver function test is fluctuating. AST has increased from 53 on October 26, 2018, to 100 today. ALT has increased from 99 to 147. Alkaline phosphatase and total bilirubin remain normal. ASSESSMENT AND PLAN: He is on empiric treatment for tuberculosis. His PPD skin test was positive measuring 2.3 x 2.5 cm. He had febrile illness with large right pleural effusion. He has had thoracentesis as well as thoracotomy with pleural biopsy. Histopathology report is equivocal. All AFB smears are so far negative. Cultures are pending. He has abnormal liver function test that is fluctuating. I suggest continued current treatment. Continue to monitor temperatures, CBC, renal function, as well as liver function. Continue to monitor clinical response to treatment. Followup on remaining AFB smears. MD LYNSEY Walsh/PARTH /[id number]
--- NOTE | 2018-10-27 17:17 | Progress Note ---
DATE: 10/27/2018 Pulmonary Critical Care Progress Note SUBJECTIVE: The patient remains afebrile. There are no new complaints. Additional sputum was induced for AFB. OBJECTIVE: VITAL SIGNS: The patient is afebrile. The blood pressure is 119/67 and the pulse ox is 100%. HEENT: Shows no facial swelling or erythema. LUNGS: There are decreased breath sounds on the right side. Surgical site looks clean. ABDOMEN: Soft, nontender. There is no rebound or guarding. IMPRESSION: 1. Large pleural effusion of unclear etiology. 2. Resolving pneumonia. 3. Possible pleural tuberculosis. PLAN: 1. I discussed the case again with Pathology. Pleural fluid was sent for flow cytometry to rule out lymphoma. 2. Pathology informed me that PCR for mycobacterium tuberculosis could not be performed at this time because the specimen is too old. They would require a fresh specimen. 3. Additional sputums for AFB are pending. 4. The patient will need the stitches removed prior to discharge. 5. Continue empiric treatment for tuberculosis. Espinoza Harry MD [facility]/MODL /[id number]
--- NOTE | 2018-10-27 18:01 | NUR ---
Patient sitting up in bed, AAOX3, Denies any SOB, NO siatress noted, call light in reach
[2018-10-27] MEDS: ACETAMINOPHEN 325 MG TAB PO PRN (19:15)
--- NOTE | 2018-10-27 19:15 | NUR ---
Bedside report completed with morning nurse. Pt alert to name. Lying supine in bed HOB 30 degrees. Drsg to right flank dry and intact. c/o 6/10 right flank pain, admin prn acetaminophen. Bed low and locked. Call heredia within reach. Will continue to monitor.
[2018-10-28] VITALS (8 sets, daily range): BP systolic 115–123; BP diastolic 56–73
[2018-10-28] MEDS: IPRATROPIUM BROMIDE 0.02% 2.5 ML NEB NEB SCH ×4 (00:40→19:55)
[2018-10-28] MEDS: ALBUTEROL SULF 0.083% NEB SOLN 3 ML NEB NEB SCH ×6 (00:40→19:55)
[2018-10-28 06:06] LABS: BASOPHILS # (AUTO) 0.1 (0.0-0.1); BASOPHILS % 0.9 % (0.0-1.0); EOSINOPHILS # (AUTO) 0.3 (0.0-0.4); EOSINOPHILS % 3.4 % (0.0-6.0); HEMATOCRIT 32.6 % (38.2-49.6); HEMOGLOBIN 10.5 g/dL (14.0-18.0); LYMPHOCYTES % 26.1 % (18.0-39.1); MEAN CORPUSCULAR HEMOGLOBIN 28.2 pg (28-32); MEAN CORPUSCULAR HGB CONC 32.2 g/dL (31-35); MEAN CORPUSCULAR VOLUME 87.6 fL (81-99); MONOCYTES # (AUTO) 0.9 (0.2-0.8); NEUTROPHILS # (AUTO) 4.4 (2.1-6.9); NEUTROPHILS % 57.1 % (38.7-80.0); PLATELET COUNT 563 x10e3/uL (140-360); RED BLOOD COUNT 3.72 x10e6/uL (4.3-5.7); RED CELL DISTRIBUTION WIDTH 13.2 % (11.7-14.4)
[2018-10-28 06:29] LABS: ALANINE AMINOTRANSFERASE 205 IU/L (0-55); ALBUMIN 2.6 g/dL (3.5-5.0); ALKALINE PHOSPHATASE 112 IU/L (40-150); ANION GAP 14.2 mmol/L (8-16); BILIRUBIN,DIRECT 0.5 mg/dL (0.0-0.5); BLOOD UREA NITROGEN 12 mg/dL (7-26); BUN/CREATININE RATIO 16 (6-25); CALCIUM 9.7 mg/dL (8.4-10.2); CARBON DIOXIDE 21 mmol/L (22-29); CHLORIDE 102 mmol/L (98-107); CREATININE, SERUM 0.75 mg/dL (0.72-1.25); EST GLOMERULAR FILTRATION RATE > 60 ML/MIN (60-); GLUCOSE 98 mg/dL (74-118); POTASSIUM 4.2 mmol/L (3.5-5.1); SODIUM 133 mmol/L (136-145)
--- NOTE | 2018-10-28 06:35 | NUR ---
IM- progress note O/N; no events roS; no cp/leg pain/vision changes/back pain/skin rash/diarrhea/N/V. V/S: rev'd PE tired appearing anicteric ns1s2 reduced BS; fine crackles at right lung base soft nt nd no e/t a&ox3; armstrong skin dry n. affect labs/med;s rev'd A/P: 37yoM Right pleural effusion R. PNA with parapneumonic effusion Obesity BMI 31.5 Hyponatremia Transaminitis Current smoker PLAN s/p thoracentesis 2600ml removed check hepatitis panel check BNP hba1c/lipids/TSH scd/pepcid dispo: 10/10 doing better; get f/u cxr. HIV and flu neg; check MICHELLE and RF; hba1c neg. TSH normal; 10/11 d/w - appears to be loculated right pleural effusion- reaccumulated. Agree with CV surgery consult. 200cc fluid removed by 2nd thoracentesis; Pt comfortable; no resp distress. 10/12 f/u labs; chest tube this am. 10/13 s/p chest tube; f/u sx plan. RF negative; MICHELLE neg; check acute hepatitis panel. 10/14 subtherapeutic vanco; ID consult. Pt was seen by CV surgery. awaiting plan of care. 10/15 persistent right pleural effusion; chest tube in place; Thoracotomy/decortication likely. 10/16 borderline Tspot. s/p thoracotomy- pain controlled; f/u path studies; continue airborne precautions. 10/17 no malignant cells in pleural effusion; 10/18 cont care 10/19 positive PPD; pleural bx reported as having caseating granulomas, d/w ; LFTs still elevated; treatment soon. 3 reported negative AFBs per ID; hence pt is not infections. Tx per ID. 10/20 initiation of antiTB meds; HyperK- recheck at 2pm. 10/21 cont care 10/22 LFT remain elevated, but stable on TB tx. 10/23 s/p chest tube removal; f/u additional AFBs; d/c planning; 10/24 f/u AFBs 10/25 once 3 negative AFBs obtained at different times, pt can transport by airplane home. d/w and . Being treated for laten 10/26 AFBs pending; 10/27 Persistent transaminitis; f/u AFBs. 10/28 Reginald Méndez MD, PhD.
[2018-10-28] MEDS: KETOROLAC TROMETHAMINE 30 MG/ML VIAL IV PRN ×2 (08:15→19:53)
[2018-10-28] MEDS: FAMOTIDINE 20 MG TAB PO SCH ×2 (08:41→16:30)
[2018-10-28] MEDS: ISONIAZID 300 MG TAB PO SCH (08:41)
[2018-10-28] MEDS: PYRAZINAMIDE 500 MG TAB PO SCH (08:41)
[2018-10-28] MEDS: RIFAMPIN 300 MG CAP PO SCH (08:41)
[2018-10-28] MEDS: ETHAMBUTOL HCL 400 MG TAB PO SCH (08:41)
[2018-10-28] MEDS: PYRIDOXINE HCL 50 MG TAB PO SCH (08:41)
[2018-10-28] MEDS: PANTOPRAZOLE SOD 40 MG TABEC PO SCH (08:41)
--- NOTE | 2018-10-28 18:43 | NUR ---
PT RESTING ON BED. BEDSIDE REPORT GIVEN TO THE ONCOMING NURSE.
[2018-10-28] MEDS: ACETAMINOPHEN 325 MG TAB PO PRN (21:04)
[2018-10-29 00:12] VITALS: BP 110/71
[2018-10-29 04:00] VITALS: BP 115/68
[2018-10-29] MEDS: ALBUTEROL SULF 0.083% NEB SOLN 3 ML NEB NEB SCH ×5 (04:15→14:45)
[2018-10-29] MEDS: IPRATROPIUM BROMIDE 0.02% 2.5 ML NEB NEB SCH ×3 (04:15→10:00)
[2018-10-29] MEDS: KETOROLAC TROMETHAMINE 30 MG/ML VIAL IV PRN (04:18)
--- NOTE | 2018-10-29 06:53 | NUR ---
DIscharge summary: A/P: 37yoM Right pleural effusion R. PNA with parapneumonic effusion Obesity BMI 31.5 Hyponatremia Transaminitis Current smoker PLAN s/p thoracentesis 2600ml removed check hepatitis panel check BNP hba1c/lipids/TSH scd/pepcid dispo: doing better; get f/u cxr. HIV and flu neg; check MICHELLE and RF; hba1c neg. TSH normal; Loculated right pleural effusion- reaccumulated. Agree with CV surgery consult. 200cc fluid removed by 2nd thoracentesis; Pt comfortable; no resp distr ess. s/p chest tube; RF negative; MICHELLE neg; borderline Tspot. s/p thoracotomy- pain controlled; no malignant cells in pleural effusion; 10/19 positive PPD; pleural bx reported as having caseating granulomas, d/w ; LFTs still elevated; treatment soon. 10/20 initiation of antiTB meds; HyperK- recheck at 2pm. 10/23 s/p chest tube removal; f/u additional AFBs; d/c planning; Once 3 negative AFBs obtained at different times, pt can transport by airplane home. Await results of 3 AFBs obtained at different times. Pt now has 3 negative AFBs on different days; [place] 9 months treatment for latent TB. Needs close f/u with PCP in 5-7 days. d/c home f/u PCP 5 days stable Fit for travel d/c>35mins Reginald Méndez MD, PhD.
--- NOTE | 2018-10-29 07:00 | NUR ---
RCD PT AT BED PT IS ALERT AND ORIENTED PT RESTING ON BED NO SIGNS OF ANY DISTRESS NOTED IV PATENT BED LOW AND LOCKED CALL LIGHT IN REACH
[2018-10-29] MEDS: FAMOTIDINE 20 MG TAB PO SCH ×2 (07:30→16:12)
[2018-10-29] MEDS: PANTOPRAZOLE SOD 40 MG TABEC PO SCH (07:30)
[2018-10-29 08:00] VITALS: BP 115/66
--- NOTE | 2018-10-29 08:45 | NUR ---
MIREILLE PLACED CALL TO [facility]. SPOKE W SUDHA, OFFICE MGR. STATES MIREILLE CHÁVEZ FOR THE PT, WILL ARRIVE AROUND 830. INFORMED SUDHA PT WAS DISCUSSED IN ROUNDS ON YESTERDAY AND PRISCILLA [facility] [employer] STATED THE PT NOW HAS 3 NEGATIVE SMEARS AND IS READY FOR DC. SUDHA ALSO STATES HE SPOKE W DR. GRAHAM THIS AM AND STATES DR. COOPER INFORMED HIM THERE WAS STILL A SMEAR COLLECTED ON YESTERDAY WAS PENDING. SUDHA REQUESTED UPDATED CLINICALS W 3 NEG SMEARS. MIREILLE FAXED INFO TO [phone]. WILL CONTINUE TO FOLLOW.
[2018-10-29 09:00] VITALS: BP 115/66
[2018-10-29] MEDS: ISONIAZID 300 MG TAB PO SCH (09:00)
[2018-10-29] MEDS: ETHAMBUTOL HCL 400 MG TAB PO SCH (09:00)
[2018-10-29] MEDS: RIFAMPIN 300 MG CAP PO SCH (09:00)
[2018-10-29] MEDS: PYRAZINAMIDE 500 MG TAB PO SCH (09:00)
[2018-10-29] MEDS: PYRIDOXINE HCL 50 MG TAB PO SCH (09:00)
[2018-10-29 12:00] VITALS: BP 114/69
--- NOTE | 2018-10-29 14:01 | Progress Note ---
DATE: 10/28/2018 SUBJECTIVE: The patient is alert and responsive. He is in no acute distress. He is not coughing. No dyspnea. No nausea, vomiting, or diarrhea. No other systemic complaints reported. OBJECTIVE: VITAL SIGNS: In the previous 24 hours, he had temperatures up to 99.1 degrees Fahrenheit. GENERAL: He is hemodynamically stable. HEENT: He has no gross pallor. There is no obvious icterus. No oropharyngeal lesions. NECK: Supple. CHEST: Symmetric. LUNGS: Clear. HEART: Sounds are regular without significant murmur. ABDOMEN: Soft, nontender. Bowel sounds are normal. EXTREMITIES: There is no acute erythema of his extremities. LABORATORY DATA: His creatinine is 0.7. His AST has increased from 100 on October 27 to 131 on October 28. ALT increased from 147 to 205. Alkaline phosphatase and total bilirubin remained normal. Repeat AFB smears from October and one collected on October 28 are being processed. IMPRESSION: He is on empiric treatment for tuberculosis. He had a febrile illness with right pleural effusion. Fluid analysis showed lymphocytosis. He had a positive PPD measuring 2.3 x 2.5 cm. AFB smears from bronchoalveolar lavage had been negative. He had thoracotomy. Histopathology report is equivocal. His liver function tests are slowly trending up again. I suggest continue current management. We may need to modify his anti-TB regimen if his liver function tests continue to worsen. MD LYNSEY Walsh/PARTH /[id number]
--- NOTE | 2018-10-29 14:11 | Progress Note ---
DATE: 10/29/2018 SUBJECTIVE: The patient is fairly stable. He is in no acute distress. He is not coughing. No dyspnea. No chest pain. No nausea, vomiting, or diarrhea. No other systemic complaints reported. OBJECTIVE: VITAL SIGNS: Overnight, he had temperatures up to 100.9 degrees Fahrenheit. GENERAL: He is hemodynamically stable. HEENT: There is no pallor. No icterus. No oropharyngeal lesions. NECK: Supple. CHEST: Symmetric. LUNGS: Breath sounds are decreased at the right lung base. HEART: Sounds are regular without a new murmur. ABDOMEN: Soft, nontender. Bowel sounds are normal. EXTREMITIES: There is no acute erythema of his extremities. LABORATORY DATA: His creatinine on October 28 is 0.7. AST increased to 131. ALT increased to 205. Alkaline phosphatase and total bilirubin are normal. His white count is 7.6, hemoglobin 10.5, and platelet count 563. There are no new positive culture reports. IMPRESSION: He is on empiric treatment for tuberculosis. He had a febrile illness with right pleural effusion. Pleural fluid analysis showed lymphocytosis. AFB smears are negative on both the pleural fluid and bronchoscopy specimens. He had thoracotomy. Pleural tissue histopathology is equivocal. He has abnormal liver function tests, which are fluctuating. I suggest continue current management. If there is further increase in his liver function, we will modify his anti-TB regimen. MD LYNSEY Walsh/MODL /[id number]
--- NOTE | 2018-10-29 15:31 | NUR ---
DR COOPER REMOVED THE STICHES ON THE CHEST TUBE SITE
--- NOTE | 2018-10-29 15:33 | NUR ---
PAGED AND TALKED DR WALKER REGARDING DISCHARGE GOT THE DISCHARGE ORDER
[2018-10-29] MEDS ORDERED: ETHAMBUTOL HCL100 MG PO (15:38)
[2018-10-29] MEDS ORDERED: ISONIAZID300 MG PO (15:38)
[2018-10-29] MEDS ORDERED: RIFAMPIN300 MG PO (15:39)
[2018-10-29] MEDS ORDERED: PYRAZINAMIDE500 MG PO (15:39)
[2018-10-29] MEDS ORDERED: TESSALON PERLE100 MG PO (15:40)
[2018-10-29] MEDS ORDERED: ULTRAM50 MG PO (15:41)
[2018-10-29] MEDS ORDERED: ALBUTEROL INH (15:45)
--- NOTE | 2018-10-29 16:07 | NUR ---
PT SIGNED THE DISCHARGE PAPER INSTRUCTIONS GIVEN ABOUT THE TB TREATMENT MEDICATIONS SIDE EFFECTS REST AND DIET HE SAID HE UNDERSTOOD HE WAITING FOR THE RIDE ARRANGING BY [facility]
--- NOTE | 2018-10-29 16:56 | NUR ---
PT WENT HOME IN SAFE CONDITION WITH [facility] ARRANGED TRANSPORTATION
--- NOTE | 2018-10-29 17:48 | Progress Note ---
DATE: 10/29/2018 Pulmonary Critical Care Progress Note SUBJECTIVE: The patient's AFBs are all negative and he has been cleared to return home to the [facility]. I removed the stitch from his chest tube site and placed a Tegaderm bandage over. I have not removed the subcutaneous stitches from his mini thoracotomy. Those will need to be removed when he returns home. Flow cytometry was performed by pathology. They state it was a hypocellular specimen, but they did not see evidence of lymphoma. OBJECTIVE: VITAL SIGNS: The patient is afebrile. The vital signs are stable. HEENT: Shows no facial swelling or erythema. CARDIAC: Reveals regular rate and rhythm with normal S1 and S2. There are no murmurs or rubs. LUNGS: Auscultation of lungs reveals clear breath sounds bilaterally. There is no wheezing. ABDOMEN: Soft, nontender. There is no rebound or guarding. EXTREMITIES: Show no leg edema or calf tenderness. There is no cyanosis or clubbing. IMPRESSION: 1. Inflammatory pleural disease of unclear etiology. 2. Possible mycobacterium tuberculosis. 3. Pneumonia with parapneumonic effusion. PLAN: 1. The patient will return home. 2. The patient will continue on antituberculosis regimen. 3. Stitches from his thoracotomy site will need to be removed within a week upon returning home. 4. The patient should have a followup chest x-ray and followup examination within several weeks of returning home. Espinoza Harry MD LM/USMANL /[id number]
--- NOTE | 2018-11-12 23:27 | Operative Report ---
DATE OF PROCEDURE: 10/16/2018 SURGEON: Andrew Dahl MD COLON THERAPIST: Preston Chaudhry. PREOPERATIVE DIAGNOSES: 1. Persistent right pleural effusion. 2. Trapped right lung. POSTOPERATIVE DIAGNOSES: 1. Persistent right pleural effusion. 2. Possible tuberculosis. TITLE OF OPERATIONS: 1. Fiberoptic bronchoscopy. 2. Exploratory right thoracotomy. 3. Drainage of right pleural effusion. 4. Decortication of right lung. 5. Incisional biopsy of right parietal pleura. 6. Incisional biopsy of right mediastinal mass. DESCRIPTION OF OPERATION: After the satisfactory accomplishment of general anesthesia with a single lumen endotracheal tube, a flexible bronchoscope was introduced through the endotracheal tube. Careful inspection of the lungs revealed no abnormalities in the left lung and the calli was sharp and normal. The right main stem bronchus appeared to be normal as did the right upper lobe, mid lobe, and lower lobe bronchial branches. There was nothing to biopsy and there was no evidence of bleeding or mass compression. The bronchoscope was withdrawn. The single lumen endotracheal tube was then withdrawn and replaced with a double lumen endotracheal tube. The patient was placed in the left lateral decubitus position and the right chest was prepped and draped in sterile fashion. A small right posterolateral thoracotomy incision was made along the fifth intercoastal space. The incision was perhaps 4-5 inches long and the incision was carried down through the subcutaneous tissues and muscles to enter the right chest in the fifth intercoastal space. Dense adhesions were present immediately beneath the ribcage. These adhesions were taken down with a combination of sharp dissection, electrocautery, and use of the suction device. The visceral pleura was from the parietal pleura manually and large sections of the parietal pleura were removed and sent to the pathology department for further inspection. The entire right middle and lower lobes were encased in the fibers adhesive process. The lung was decorticated by gently and carefully removing the rind from the surface of the lung. All bleeding points and significant air leaks were oversewn or cauterized. The right pleural effusion was thoroughly drained and patient accounting representative samples were sent to the pathology and bacteriology laboratories for further evaluation. A fibrous mass was located in the hilar and mediastinal areas of the central part of the right lung. Several small biopsies of this mass were removed and sent to the pathology department for further inspection. The entire right chest was then thoroughly irrigated with antibiotic solution. Right lung was carefully expanded and no further trapping was noticed. 2 chest tubes were inserted into the right chest through separate stab incision and anchored to the skin with 0 silk sutures. The incision was then closed in layers with interrupted Vicryl sutures of #1 Vicryl for the pericostal sutures and running 0 Vicryl for the muscles and fascia of the chest wall. The subcutaneous tissues were closed with 2-0 Vicryl and the skin was closed with a Monocryl subcuticular stitch. The patient tolerated the procedure well and was returned to the intensive care unit in good condition. MD GLORIA Macdonald/PARTH /[id number]
== END 2018-10-29 16:57 | disposition home or self-care (01) | DRG 853 ==
LOC: ER 11:21 → ERHOLD 13:26 → MED/SURG3 14:47 → MED/SURG 10-16 09:52 → ICU 10-16 12:50 → MED/SURG2 10-23 12:27
PROVIDERS: ADMIT Internal Medicine; ATTEND Internal Medicine
PROC: 0W993ZX Drainage of Right Pleural Cavity, Percutaneous Approach, Diagnostic (ICD-10-PCS; principal; 2018-10-09)
PROC: 0W9930Z Drainage of Right Pleural Cavity with Drainage Device, Percutaneous Approach (ICD-10-PCS; 2018-10-12)
PROC: 0W993ZZ Drainage of Right Pleural Cavity, Percutaneous Approach (ICD-10-PCS; 2018-10-12)
PROC: 0BNJ0ZZ Release Left Lower Lung Lobe, Open Approach (ICD-10-PCS; 2018-10-16)
PROC: 0WBC0ZX Excision of Mediastinum, Open Approach, Diagnostic (ICD-10-PCS; 2018-10-16)
PROC: 0BND0ZZ Release Right Middle Lung Lobe, Open Approach (ICD-10-PCS; 2018-10-16)
PROC: 0BNF0ZZ Release Right Lower Lung Lobe, Open Approach (ICD-10-PCS; 2018-10-16)
PROC: 0BBN0ZX Excision of Right Pleura, Open Approach, Diagnostic (ICD-10-PCS; 2018-10-16)
PROC: 0W9900Z Drainage of Right Pleural Cavity with Drainage Device, Open Approach (ICD-10-PCS; 2018-10-16)
DX: A41.9 Sepsis, unspecified organism (principal); J18.9 Pneumonia, unspecified organism; E87.1 Hypo-osmolality and hyponatremia; J91.8 Pleural effusion in other conditions classified elsewhere; A15.0 Tuberculosis of lung; F17.200 Nicotine dependence, unspecified, uncomplicated; E66.9 Obesity, unspecified; Z68.31 Body mass index [BMI] 31.0-31.9, adult; R74.0 Nonspecific elevation of levels of transaminase and lactic acid dehydrogenase [LDH]; F17.210 Nicotine dependence, cigarettes, uncomplicated; E87.5 Hyperkalemia; R50.9 Fever, unspecified
CPT/HCPCS: 32555; 32557; 36415; 71045; 71046; 71250; 71260; 74177; 74470; 80048; 80053; 80061; 80076; 80202; 81001; 82550; 82553; 82945; 83036; 83518; 83605; 83615; 83735; 83880; 84132; 84157; 84443; 84478; 84484; 85007; 85025; 85027; 85610; 85730; 86039; 86431; 86606; 86612; 86698; 86850; 86900; 86920; 87040; 87070; 87071; 87075; 87086; 87102; 87116; 87149; 87190; 87205; 87206; 87252; 87299; 87335; 87390; 87400; 87449; 88112; 88304; 88305; 88312; 89051; 93005; 94640; 99152; 99153; 99284; C1769; G0433; G0435; J1100; J1650; J1885; J2001; J2250; J2270; J2405; J3370; J7030; J7050; Q9967